=== PATIENT | female | born 1990 | race Caucasian/White ===

== ENCOUNTER 2016-05-16 23:41 | Emergency (ER) | payer OTHER ==
[2016-05-17] MEDS ORDERED: KETOROLAC 30 MG/ML 1 ML VIAL IVP STA (00:20)
[2016-05-17] MEDS ORDERED: SODIUM CHLORIDE 0.9% 1,000 ML IV STA (00:20)
[2016-05-17] MEDS ORDERED: ONDANSETRON 4 MG/2 ML VIAL IVP STA (00:20)
[2016-05-17 00:58] LABS: Basophils # (A) 0.1 k/uL (0-0.2); Basophils % (A) 1 %; CH 32.2; CHCM 34.8; Eosinophils # (A) 0.7 k/uL (0-0.7); Eosinophils % (A) 8 %; HCT 41.8 % (34.0-46.0); HDW 2.57; HGB 14.2 gm/dL (11.4-16.0); Luc # (Auto) 0.35; Luc % (Auto) 4; Lymphocytes # (A) 1.4 k/uL (1.0-4.8); Lymphocytes % (A) 17 %; MCH 31.5 pg (25.0-35.0); MCHC 33.9 g/dL (31.0-37.0); Mean Platelet Volume 7.9; Monocytes # (A) 0.4 k/uL (0-1.0); Monocytes % (A) 5 %; Neutrophils # (A) 5.3 k/uL (1.3-7.7); Neutrophils % (A) 65 %; RDW 12.9 % (11.5-15.5); WBC 8.2 k/uL (3.8-10.6); WBC (Perox) 8.55
[2016-05-17 01:06] LABS: Appearance,Urine Clear (Clear); Bilirubin,Urine Negative (Negative); Glucose,Urine (UA) 4+ (Negative); Ketones,Urine Negative (Negative); Leukocyte Esterase,Urine Negative (Negative); Nitrite,Urine Negative (Negative); PH, Urine 5.5 (5.0-8.0); Protein,Urine Negative (Negative); Specific Gravity,Urine 1.022 (1.001-1.035); UA Billing (MACRO vs. MICRO) CHEM; Urobilinogen,Urine <2.0 mg/dL (<2.0)
--- NOTE | 2016-05-17 01:07 | ED ---
Abdominal Pain HPI - General Chief Complaint: Abdominal Pain Stated Complaint: side pain Time Seen by Provider: 05/17/16 00:20 Source: patient, RN notes reviewed Mode of arrival: ambulatory Limitations: no limitations - History of Present Illness Initial Comments: Patient is a 18-year-old female with chief complaint of right upper quadrant abdominal pain for the past 4 days. Patient reports that she was seen at [facility] on and was given lab work and an x-ray and was told to go home as it was likely constipation. Patient reports that she's had normal bowel movement since then has not relieved her pain is related to constipation. She states is mainly in the right upper quadrant. She states that it has been constant but does state that it started after she ate breakfast and continues to persist after that. She states that she's had no fever or chills. She denies any dysuria or hematuria. She says she is slightly nauseated but denies any vomiting or diarrhea. Patient denies any significant past medical history. - Related Data Home Medications Medication Instructions Recorded Confirmed Gabapentin [Neurontin] 1 tab PO DAILY 05/16/16 05/16/16 Losartan [Cozaar] 1 tab PO DAILY 05/16/16 05/16/16 Sertraline [Zoloft] 1 tab PO DAILY 05/16/16 05/16/16 metFORMIN HCL 1 tab PO DAILY 05/16/16 05/16/16 Previous Rx's Medication Instructions Recorded Ondansetron Odt [Zofran Odt] 4 mg PO Q8HR PRN #12 tab 05/17/16 Allergies Allergy/AdvReac Type Severity Reaction Status Date / Time No Known Allergies Allergy Verified 05/16/16 23:48 Review of Systems ROS Statement: Those systems with pertinent positive or pertinent negative responses have been documented in the HPI. ROS Other: All systems not noted in ROS Statement are negative. Past Medical History Past Medical History: Diabetes Mellitus, Hyperlipidemia, Hypertension Additional Past Medical History / Comment(s): recovering addict and alcoholic History of Any Multi-Drug Resistant Organisms: None Reported Past Surgical History: No Surgical Hx Reported Past Psychological History: Bipolar Smoking Status: Current every day smoker Past Alcohol Use History: Occasional Past Drug Use History: None Reported General Exam - General Exam Comments Initial Comments: Well-appearing 18-year-old female. She doesn't appear to be in any acute distress. Limitations: no limitations General appearance: alert, in no apparent distress Head exam: Present: atraumatic, normocephalic, normal inspection Eye exam: Present: normal appearance, PERRL, EOMI. Absent: scleral icterus, conjunctival injection, periorbital swelling ENT exam: Present: normal exam, mucous membranes moist Neck exam: Present: normal inspection. Absent: tenderness, meningismus, lymphadenopathy Respiratory exam: Present: normal lung sounds bilaterally. Absent: respiratory distress, wheezes, rales, rhonchi, stridor Cardiovascular Exam: Present: regular rate, normal rhythm, normal heart sounds. Absent: systolic murmur, diastolic murmur, rubs, gallop, clicks GI/Abdominal exam: Present: soft, tenderness (Significant right upper quadrant tenderness.), normal bowel sounds. Absent: distended, guarding, rebound, rigid Extremities exam: Present: normal inspection, full ROM, normal capillary refill. Absent: tenderness, pedal edema, joint swelling, calf tenderness Back exam: Present: normal inspection Neurological exam: Present: alert, oriented X3, CN II-XII intact Psychiatric exam: Present: normal affect, normal mood Skin exam: Present: warm, dry, intact, normal color. Absent: rash Course Vital Signs 05/16/16 05/17/16 23:49 04:13 Temperature 98.6 F 98.1 F Pulse Rate 105 H 14 L Respiratory 20 78 H Rate Blood Pressure 143/87 129/74 O2 Sat by Pulse 97 97 Oximetry Medical Decision Making - Medical Decision Making Patient is a 26 year old diabetic female with one week of right upper qudrant pain. She went to [facility] on and lab work was obtained. She relates that the pain is worse after eating. She states that she has had no fever or chills. Patient labowrk was reviewed and compared to earlier in the week, she does have mildly elevated liver enzymes. RUQ us shows no gallstones, evidence of a fatty liver. Patient informed of results and advised to follow up with GI specialist and given Rx for zofran for nausea. Discussed possible hida scan. Patient understands thre needs to follow up with PCP and return paramteres discussed. - Lab Data Result diagrams: 05/17/16 00:35 05/17/16 00:35 Lab Results 05/17/16 05/17/16 05/17/16 Range/Units 00:35 00:35 00:35 WBC 8.2 (3.8-10.6) k/uL RBC 4.50 (3.80-5.40) m/uL Hgb 14.2 (11.4-16.0) gm/dL Hct 41.8 (34.0-46.0) % MCV 93.0 (80.0-100.0) fL MCH 31.5 (25.0-35.0) pg MCHC 33.9 (31.0-37.0) g/dL RDW 12.9 (11.5-15.5) % Plt Count 220 (150-450) k/uL Neutrophils % 65 % Lymphocytes % 17 % Monocytes % 5 % Eosinophils % 8 % Basophils % 1 % Neutrophils # 5.3 (1.3-7.7) k/uL Lymphocytes # 1.4 (1.0-4.8) k/uL Monocytes # 0.4 (0-1.0) k/uL Eosinophils # 0.7 (0-0.7) k/uL Basophils # 0.1 (0-0.2) k/uL Sodium 141 (137-145) mmol/L Potassium 4.0 (3.5-5.1) mmol/L Chloride 104 (98-107) mmol/L Carbon Dioxide 24 (22-30) mmol/L Anion Gap 13 mmol/L BUN 15 (7-17) mg/dL Creatinine 1.00 (0.52-1.04) mg/dL Est GFR (MDRD) Af Amer >60 (>60 ml/min/1.73 sqM) Est GFR (MDRD) Non-Af >60 (>60 ml/min/1.73 sqM) Glucose 241 H (74-99) mg/dL Calcium 10.0 (8.4-10.2) mg/dL Total Bilirubin 0.3 (0.2-1.3) mg/dL AST 46 H (14-36) U/L ALT 76 H (9-52) U/L Alkaline Phosphatase 54 (38-126) U/L Total Protein 7.8 (6.3-8.2) g/dL Albumin 4.7 (3.5-5.0) g/dL Amylase 60 (30-110) U/L Lipase 171 (23-300) U/L Urine Color Urine Appearance (Clear) Urine pH (5.0-8.0) Ur Specific Erick (1.001-1.035) Urine Protein (Negative) Urine Glucose (UA) (Negative) Urine Ketones (Negative) Urine Blood (Negative) Urine Nitrate (Negative) Urine Bilirubin (Negative) Urine Urobilinogen (<2.0) mg/dL Ur Leukocyte Esterase (Negative) Urine HCG, Qual Not Detected (Not Detectd) 05/17/16 Range/Units 00:35 WBC (3.8-10.6) k/uL RBC (3.80-5.40) m/uL Hgb (11.4-16.0) gm/dL Hct (34.0-46.0) % MCV (80.0-100.0) fL MCH (25.0-35.0) pg MCHC (31.0-37.0) g/dL RDW (11.5-15.5) % Plt Count (150-450) k/uL Neutrophils % % Lymphocytes % % Monocytes % % Eosinophils % % Basophils % % Neutrophils # (1.3-7.7) k/uL Lymphocytes # (1.0-4.8) k/uL Monocytes # (0-1.0) k/uL Eosinophils # (0-0.7) k/uL Basophils # (0-0.2) k/uL Sodium (137-145) mmol/L Potassium (3.5-5.1) mmol/L Chloride (98-107) mmol/L Carbon Dioxide (22-30) mmol/L Anion Gap mmol/L BUN (7-17) mg/dL Creatinine (0.52-1.04) mg/dL Est GFR (MDRD) Af Amer (>60 ml/min/1.73 sqM) Est GFR (MDRD) Non-Af (>60 ml/min/1.73 sqM) Glucose (74-99) mg/dL Calcium (8.4-10.2) mg/dL Total Bilirubin (0.2-1.3) mg/dL AST (14-36) U/L ALT (9-52) U/L Alkaline Phosphatase (38-126) U/L Total Protein (6.3-8.2) g/dL Albumin (3.5-5.0) g/dL Amylase (30-110) U/L Lipase (23-300) U/L Urine Color Yellow Urine Appearance Clear (Clear) Urine pH 5.5 (5.0-8.0) Ur Specific Erick 1.022 (1.001-1.035) Urine Protein Negative (Negative) Urine Glucose (UA) 4+ H (Negative) Urine Ketones Negative (Negative) Urine Blood Negative (Negative) Urine Nitrate Negative (Negative) Urine Bilirubin Negative (Negative) Urine Urobilinogen <2.0 (<2.0) mg/dL Ur Leukocyte Esterase Negative (Negative) Urine HCG, Qual (Not Detectd) - Radiology Data Radiology results: report reviewed KUB shows no evidence of free air. Increased fecal Abena. No x-ray evidence of bowel obstruction. Ultrasound that shows impression of fatty liver. No evidence of gallstones. Disposition Clinical Impression: RUQ pain, Fatty liver Disposition: HOME SELF-CARE Condition: Good Instructions: Abdominal Pain (ED) Additional Instructions: Patient advised to follow up with primary care provider. Is to follow-up with GI specialist. Return the emergency Department if any alarming signs or symptoms occur. Prescriptions: Ondansetron Odt [Zofran Odt] 4 mg PO Q8HR PRN #12 tab PRN Reason: Nausea Referrals: Albert Llanos MD [Primary Care Provider] - 1-2 days Time of Disposition: 03:29
[2016-05-17 01:08] LABS: ALT 76 U/L (9-52); AST 46 U/L (14-36); Alkaline Phosphatase 54 U/L (38-126); Amylase 60 U/L (30-110); Anion Gap 13 mmol/L; Blood Urea Nitrogen 15 mg/dL (7-17); Carbon Dioxide 24 mmol/L (22-30); Chloride 104 mmol/L (98-107); Glucose 241 mg/dL (74-99); Non-African American GFR(MDRD) >60 (>60 ml/min/1.73 sqM); Sodium 141 mmol/L (137-145); Total Bilirubin 0.3 mg/dL (0.2-1.3); Total Protein 7.8 g/dL (6.3-8.2)
--- NOTE | 2016-05-17 01:59 | US ---
EXAM: US Abdomen Limited, Right Upper Quadrant. CLINICAL HISTORY: Pain TECHNIQUE: Real-time ultrasound of the right upper quadrant with image documentation. COMPARISON: No relevant prior studies available. FINDINGS: Liver: 14.3 cm. Fatty infiltration. No mass. No intrahepatic bile duct dilation. Gallbladder: Unremarkable. No gallstones. Common bile duct: 0.3 cm. No stones. No dilation. Pancreas: Not well visualized. Right kidney: Unremarkable. No stones. No solid mass. No hydronephrosis. IMPRESSION: Fatty liver. No gallstones.
--- NOTE | 2016-05-17 03:10 | XR ---
EXAM: XR Abdomen, 1 View. CLINICAL HISTORY: abdominal pain TECHNIQUE: Frontal supine view of the abdomen/pelvis. COMPARISON: No relevant prior studies available. FINDINGS/IMPRESSION: No free air. Increased fecal burden, correlate with history of constipation. No radiographic evidence for small bowel obstruction.
[2016-05-17 04:14] VITALS: BP 129/74; PULSE 14; RESP 78; TEMP 98.1
== END 2016-05-17 04:13 | disposition home or self-care (01) ==
LOC: EC 23:41
DX: K76.0 Fatty (change of) liver, not elsewhere classified (principal); R10.11 Right upper quadrant pain; R11.0 Nausea; R74.8 Abnormal levels of other serum enzymes; E11.9 Type 2 diabetes mellitus without complications; E78.5 Hyperlipidemia, unspecified; I10 Essential (primary) hypertension; F31.9 Bipolar disorder, unspecified; F17.200 Nicotine dependence, unspecified, uncomplicated; Z79.899 Other long term (current) drug therapy; Z79.84 Long term (current) use of oral hypoglycemic drugs
CPT/HCPCS: 36415; 80053; 82150; 83690; 85025; 81003; 81025; 87086; 74000; 76705; 99284; 96374; 96375; 96361; J2405; J1885

== ENCOUNTER → 2016-05-20 | Outpatient (CLI) | payer OTHER ==
--- NOTE | 2016-05-21 05:59 | NM ---
EXAMINATION TYPE: NM hepatobiliary w EF DATE OF EXAM: 05/20/2016 5:27 PM COMPARISON: Gallbladder ultrasound from 3 days ago. HISTORY: Right upper quadrant pain per order. Additional symptoms of diminished appetite for 1 month. TECHNIQUE: After the intravenous administration of 5.45 mCi Tc 99m Mebrofenin hepatobiliary scintigra phy is performed. Immediate images post injection. FINDINGS: There is satisfactory initial accumulation of tracer by the liver. The gallbladder is visualized wit hin 25 minutes. The small bowel activity is noted within 20 minutes. At one hour 8 ounces of oral e nsure plus is given to mimic CCK and gallbladder ejection fraction is calculated at 55 %, in the norm al range. Therefore there is no scintigraphic evidence of cystic or common bile duct obstruction to suggest acute cholecystitis or gallbladder dyskinesia. IMPRESSION: Exam is within normal limits.
== END | disposition home or self-care (01) ==
LOC: RADNMMAIN 14:40
PROVIDERS: ATTEND Family Medicine
DX: R10.11 Right upper quadrant pain (principal)
CPT/HCPCS: 78226; A9537

== ENCOUNTER 2017-12-03 14:47 | Emergency (ER) | payer OTHER ==
[2017-12-03 14:55] VITALS: BP 135/76; PULSE 108; RESP 18; TEMP 99.5
[2017-12-03] MEDS ORDERED: LIDOCAINE 1% INJ 10MG/ML (20 ML MDV) SQ ONE (15:25)
--- NOTE | 2017-12-03 15:30 | ED ---
General Adult HPI - General Chief complaint: Skin/Abscess/Foreign Body Stated complaint: fever & Female Time Seen by Provider: 12/03/17 15:15 Source: patient, RN notes reviewed Mode of arrival: ambulatory Limitations: no limitations - History of Present Illness Initial comments: Patient is a pleasant 27-year-old female presenting to the emergency Department with concern for labial boil. Onset of symptoms was a few days ago. Symptoms worsened today and is becoming larger and more uncomfortable. Patient did have 101 temperature earlier today. Patient did recently see her doctor and diagnosed with bronchitis. Patient only has a mild cough. No dyspnea. Discomfort does increase with touch and movement. No history of similar symptoms previously. - Related Data Home Medications Medication Instructions Recorded Confirmed metFORMIN HCL 1 tab PO DAILY 05/16/16 05/16/16 Loratadine [Claritin] 10 mg PO DAILY 12/03/17 12/03/17 Previous Rx's Medication Instructions Recorded Cefixime [Suprax] 400 mg PO DAILY #7 cap 12/03/17 Clindamycin [Cleocin] 2 tab PO Q6H #56 capsule 12/03/17 Allergies Allergy/AdvReac Type Severity Reaction Status Date / Time No Known Allergies Allergy Verified 12/03/17 15:51 Review of Systems ROS Statement: Those systems with pertinent positive or pertinent negative responses have been documented in the HPI. ROS Other: All systems not noted in ROS Statement are negative. Constitutional: Reports: fever Eyes: Denies: eye pain ENT: Denies: ear pain Respiratory: Reports: cough. Denies: dyspnea Cardiovascular: Denies: chest pain Endocrine: Denies: fatigue Gastrointestinal: Denies: abdominal pain Genitourinary: Denies: dysuria Musculoskeletal: Denies: back pain Skin: Reports: lesions Neurological: Denies: headache Past Medical History Past Medical History: Diabetes Mellitus, Hyperlipidemia, Hypertension Additional Past Medical History / Comment(s): recovering addict and alcoholic History of Any Multi-Drug Resistant Organisms: None Reported Past Surgical History: No Surgical Hx Reported Past Psychological History: Bipolar Smoking Status: Current every day smoker Past Alcohol Use History: Occasional Past Drug Use History: None Reported General Exam Limitations: no limitations General appearance: alert, in no apparent distress Head exam: Present: atraumatic Eye exam: Present: normal appearance Neck exam: Present: normal inspection Respiratory exam: Present: normal lung sounds bilaterally Cardiovascular Exam: Present: regular rate, normal rhythm GI/Abdominal exam: Present: soft. Absent: tenderness External exam: Present: other (Left lower lateral labial swelling and tenderness and mild erythema.) Neurological exam: Present: alert Psychiatric exam: Present: normal affect, normal mood Skin exam: Present: normal color Course Vital Signs 12/03/17 14:51 Temperature 99.5 F Pulse Rate 108 H Respiratory 18 Rate Blood Pressure 135/76 O2 Sat by Pulse 99 Oximetry Procedures - Incision & Drainage Consent Obtained: verbal consent Time Out Performed?: Yes Site: vulva/vagina (") Anesthetic Used: lidocaine 1% I&D Cleaning Method: Betadine Scalpel Used: #11 I&D Drainage Obtained: Pus Packing: Other (Villafana catheter) Culture Obtained?: Yes Disposition Clinical Impression: Bartholin's gland abscess Disposition: HOME SELF-CARE Condition: Stable Instructions: Abscess (ED), Bartholin Cyst (ED) Additional Instructions: Please follow-up with primary care physician or HEALTH TECHNICIAN in the next day or 2 for recheck. You will need to have catheter removed within the next few days up to a couple of weeks. Return for pain, swelling, increased redness, fevers, worsening symptoms or other concerns. Daily sitz baths Prescriptions: Cefixime [Suprax] 400 mg PO DAILY #7 cap Clindamycin [Cleocin] 2 tab PO Q6H #56 capsule Is patient prescribed a controlled substance at d/c from ED?: No Referrals: Harriet Lemus MD [Primary Care Provider] - 1-2 days Rubi Lanier DO [Doctor of Osteopathic Medicine] - 1-2 days Time of Disposition: 15:55
[2017-12-03] MEDS ORDERED: ACETAMINOPHEN TAB 500 MG TAB PO STA (15:59)
== END 2017-12-03 16:10 | disposition home or self-care (01) ==
LOC: EC 14:47
DX: N75.1 Abscess of Bartholin's gland (principal); E11.9 Type 2 diabetes mellitus without complications; F17.200 Nicotine dependence, unspecified, uncomplicated; Z79.84 Long term (current) use of oral hypoglycemic drugs; Z79.899 Other long term (current) drug therapy
CPT/HCPCS: 56420; 87070; 87205; 99283

== ENCOUNTER 2017-12-04 18:13 | Inpatient (IN) | payer OTHER ==
[2017-12-04] MEDS ORDERED: VANCOMYCIN IV PER PHARMACY 1 EACH MISC MISCELLANE PRN (19:02)
[2017-12-04] MEDS ORDERED: VANCOMYCIN 1,500 MG in SODIUM CHLORIDE 0.9% 250 ML IVPB STA (19:10)
[2017-12-04 19:23] LABS: Basophils % (A) 0 %; Eosinophils # (A) 0.1 k/uL (0-0.7); Eosinophils % (A) 1 %; HCT 40.6 % (34.0-46.0); HGB 13.6 gm/dL (11.4-16.0); Lymphocytes # (A) 0.8 k/uL (1.0-4.8); Lymphocytes % (A) 6 %; MCH 31.6 pg (25.0-35.0); MCHC 33.6 g/dL (31.0-37.0); MCV 93.9 fL (80.0-100.0); Mean Platelet Volume 6.9; Monocytes # (A) 0.3 k/uL (0-1.0); Monocytes % (A) 2 %; Neutrophils # (A) 12.9 k/uL (1.3-7.7); Neutrophils % (A) 91 %; Platelet Count 207 k/uL (150-450); RBC 4.32 m/uL (3.80-5.40); RDW 11.7 % (11.5-15.5); WBC 14.3 k/uL (3.8-10.6)
[2017-12-04 19:34] LABS: ALT 31 U/L (9-52); AST 19 U/L (14-36); Albumin 3.8 g/dL (3.5-5.0); Alkaline Phosphatase 69 U/L (38-126); Anion Gap 11 mmol/L; Blood Urea Nitrogen 18 mg/dL (7-17); Calcium 9.2 mg/dL (8.4-10.2); Carbon Dioxide 22 mmol/L (22-30); Chloride 104 mmol/L (98-107); Glucose 300 mg/dL (74-99); Potassium 3.8 mmol/L (3.5-5.1); Sodium 137 mmol/L (137-145); Total Bilirubin 0.8 mg/dL (0.2-1.3); Total Protein 6.9 g/dL (6.3-8.2)
--- NOTE | 2017-12-04 19:39 | ED ---
Skin/Abscess/FB HPI - General Chief complaint: Skin/Abscess/Foreign Body Stated complaint: CYST Time Seen by Provider: 12/04/17 18:33 Source: patient, RN notes reviewed Mode of arrival: ambulatory Limitations: no limitations - History of Present Illness Initial comments: This is a 27-year-old female who presents to the emergency department for recheck of a Bartholin's gland abscess. Patient was seen here in the emergency department yesterday and had a Bartholin's gland abscess drained and a catheter placed. Patient states that prior to presentation to the emergency department yesterday, she did have a fever of 101.4. She states she has not had fevers since that time but has been taking Tylenol routinely. Patient states that she returned to the emergency department today because the pain and redness has spread up to her pubic region. She states that her left labia has become more swollen and the catheter has not been draining a lot. She was prescribed Suprax and clindamycin. Patient states that she has not filled the Suprax because it was too expensive. She has taken one dose of clindamycin so far. Patient denies chest pain or shortness of breath, abdominal pain, nausea or vomiting. - Related Data Home Medications Medication Instructions Recorded Confirmed metFORMIN HCL 1,000 mg PO BID 05/16/16 12/03/17 Loratadine [Claritin] 10 mg PO DAILY 12/03/17 12/03/17 Previous Rx's Medication Instructions Recorded Cefixime [Suprax] 400 mg PO DAILY #7 cap 12/03/17 Clindamycin [Cleocin] 2 tab PO Q6H #56 capsule 12/03/17 Allergies Allergy/AdvReac Type Severity Reaction Status Date / Time No Known Allergies Allergy Verified 12/04/17 18:18 Review of Systems ROS Statement: Those systems with pertinent positive or pertinent negative responses have been documented in the HPI. ROS Other: All systems not noted in ROS Statement are negative. Past Medical History Past Medical History: Diabetes Mellitus, Hyperlipidemia, Hypertension Additional Past Medical History / Comment(s): recovering addict and alcoholic History of Any Multi-Drug Resistant Organisms: None Reported Past Surgical History: No Surgical Hx Reported Past Psychological History: Bipolar Smoking Status: Current every day smoker Past Alcohol Use History: Occasional Past Drug Use History: None Reported General Exam - General Exam Comments Initial Comments: General: Awake and alert, well-developed; in no apparent distress. HEENT: Head atraumatic, normocephalic. Pupils are equal, round and reactive to light. Extraocular movements intact. Oropharynx moist without erythema or exudate. Neck: Supple. Normal ROM. Cardiovascular: Regular rhythm. Tachycardia. No murmurs, rubs or gallops. Chest symmetrical. Respiratory: Lungs clear to auscultation bilaterally. No wheezes, rales or rhonchi. Normal respiratory effort with no use of accessory muscles. Abdomen: Soft, non-distended. Tenderness on palpation of suprapubic region. No rigidity, rebound or guarding. Normal bowel sounds in all 4 quadrants. Musculoskeletal: Normal ROM, no tenderness bilateral upper and lower extremities. Ambulating normally. Skin: [place], warm and dry. Neurological: Alert and oriented x3. CN II-XII grossly intact. Speech is fluent and answers are appropriate. No focal neuro deficits. Psychiatric: Normal mood and affect. No overt signs of depression or anxiety noted. Limitations: no limitations External exam: Present: other (diffuse erythema, swelling and tenderness of entire left labia. bartholin gland catheter is in place. no active drainage noted. erythema spreading to pubis with tenderness on palpation.) Course Vital Signs 12/04/17 12/04/17 18:16 19:43 Temperature 98.8 F 98.4 F Pulse Rate 111 H 99 Respiratory 18 16 Rate Blood Pressure 130/80 132/62 O2 Sat by Pulse 98 94 L Oximetry - Reevaluation(s) Reevaluation #1: At this time, patient does meet criteria for sepsis with tachycardia and a white count of 14.3. Patient has been started on vancomycin and Zosyn. Blood cultures pending. 12/04/17 19:57 Medical Decision Making - Medical Decision Making This is a 27-year-old female who presents to the emergency department for recheck of Bartholin's gland abscess. Patient had a Bartholin abscess drained yesterday here in the emergency department. She states that the redness and pain has spread upward and her labia has become more swollen. On physical examination, there is extensive swelling, erythema and tenderness to the entire left labia with spreading redness up to the pubic area. Patient does report fevers at home but states that she has been taking Tylenol consistently. CBC reveals a white count of 14.3 with a left shift of 12.9. Lactic acid is 2.0. CMP reveals a glucose of 300. Patient states that she does have type 2 diabetes and takes 1000 mg of metformin in the morning and in the evening. She states that she did not take her morning dose. Patient has her medications with her and took her nighttime dose while here in the emergency department. Patient does meet sepsis criteria and started on vancomycin and Zosyn. She will be admitted to Dr. Zheng for IV antibiotics. Case discussed in detail with attending physician, Dr. Fritz. Patient is in agreement for admission. She is in no acute distress. - Lab Data Result diagrams: 12/04/17 19:04 12/04/17 19:04 Lab Results 12/04/17 12/04/17 12/04/17 Range/Units 19:04 19:04 19:04 WBC 14.3 H (3.8-10.6) k/uL RBC 4.32 (3.80-5.40) m/uL Hgb 13.6 (11.4-16.0) gm/dL Hct 40.6 (34.0-46.0) % MCV 93.9 (80.0-100.0) fL MCH 31.6 (25.0-35.0) pg MCHC 33.6 (31.0-37.0) g/dL RDW 11.7 (11.5-15.5) % Plt Count 207 (150-450) k/uL Neutrophils % 91 % Lymphocytes % 6 % Monocytes % 2 % Eosinophils % 1 % Basophils % 0 % Neutrophils # 12.9 H (1.3-7.7) k/uL Lymphocytes # 0.8 L (1.0-4.8) k/uL Monocytes # 0.3 (0-1.0) k/uL Eosinophils # 0.1 (0-0.7) k/uL Basophils # 0.0 (0-0.2) k/uL Sodium 137 (137-145) mmol/L Potassium 3.8 (3.5-5.1) mmol/L Chloride 104 (98-107) mmol/L Carbon Dioxide 22 (22-30) mmol/L Anion Gap 11 mmol/L BUN 18 H (7-17) mg/dL Creatinine 0.88 (0.52-1.04) mg/dL Est GFR (CKD-EPI)AfAm >90 (>60 ml/min/1.73 sqM) Est GFR (CKD-EPI)NonAf 90 (>60 ml/min/1.73 sqM) Glucose 300 H (74-99) mg/dL Plasma Lactic Acid Nikunj 2.0 (0.7-2.0) mmol/L Calcium 9.2 (8.4-10.2) mg/dL Total Bilirubin 0.8 (0.2-1.3) mg/dL AST 19 (14-36) U/L ALT 31 (9-52) U/L Alkaline Phosphatase 69 (38-126) U/L Total Protein 6.9 (6.3-8.2) g/dL Albumin 3.8 (3.5-5.0) g/dL Disposition Clinical Impression: Bartholin's gland abscess, Cellulitis, Sepsis Disposition: ADMITTED IP TO THIS HOSP Condition: Good Is patient prescribed a controlled substance at d/c from ED?: No Referrals: Harriet Lemus MD [Primary Care Provider] - 1-2 days Time of Disposition: 20:15
[2017-12-04] MEDS ORDERED: SODIUM CHLORIDE 0.9% 1,000 ML IV STA (19:58)
[2017-12-04] MEDS ORDERED: NALOXONE 0.4 MG/ML 1 ML VIAL IV PRN (20:16)
[2017-12-04 21:55] VITALS: BMI 27.5
[2017-12-04 22:09] LABS: Glucose,Whole Blood 191 mg/dL (75-99)
[2017-12-04] MEDS: ACETAMINOPHEN TAB 325 MG TAB PO PRN (22:09)
[2017-12-04] MEDS: KETOROLAC 30 MG/ML 1 ML VIAL IVP PRN (22:09)
[2017-12-04] MEDS: ONDANSETRON 4 MG/2 ML VIAL IVP PRN (22:11)
[2017-12-04] MEDS: PIPERACILLIN-TAZOBACTAM 3.375 GM in DEXTROSE/WATER 1 50ML.BAG IVPB SCH (22:53)
[2017-12-04] MEDS: SODIUM CHLORIDE 0.9% 1,000 ML IV SCH (23:48)
[2017-12-05] MEDS: VANCOMYCIN 1,500 MG in SODIUM CHLORIDE 0.9% 250 ML IVPB SCH ×3 (04:29→20:03)
[2017-12-05] MEDS: PIPERACILLIN-TAZOBACTAM 3.375 GM in DEXTROSE/WATER 1 50ML.BAG IVPB SCH ×3 (04:31→20:03)
[2017-12-05] MEDS: ONDANSETRON 4 MG/2 ML VIAL IVP PRN ×3 (05:01→20:02)
[2017-12-05] MEDS: KETOROLAC 30 MG/ML 1 ML VIAL IVP PRN ×3 (05:02→22:07)
[2017-12-05] MEDS: SODIUM CHLORIDE 0.9% 1,000 ML IV SCH ×2 (05:55→17:23)
[2017-12-05 07:29] LABS: Glucose,Whole Blood 255 mg/dL (75-99)
[2017-12-05] MEDS: ACETAMINOPHEN TAB 325 MG TAB PO PRN ×2 (08:08→14:33)
[2017-12-05 08:22] LABS: ALT 45 U/L (9-52); AST 28 U/L (14-36); Albumin 3.2 g/dL (3.5-5.0); Alkaline Phosphatase 89 U/L (38-126); Anion Gap 9 mmol/L; Blood Urea Nitrogen 16 mg/dL (7-17); Calcium 8.5 mg/dL (8.4-10.2); Carbon Dioxide 26 mmol/L (22-30); Chloride 102 mmol/L (98-107); Glucose 226 mg/dL (74-99); Sodium 137 mmol/L (137-145); Total Bilirubin 0.7 mg/dL (0.2-1.3); Total Protein 5.9 g/dL (6.3-8.2)
[2017-12-05 09:18] LABS: Basophils % (A) 0 %; Eosinophils % (A) 0 %; HCT 36.7 % (34.0-46.0); HGB 11.9 gm/dL (11.4-16.0); Lymphocytes # (A) 0.7 k/uL (1.0-4.8); Lymphocytes % (A) 5 %; MCH 30.7 pg (25.0-35.0); MCHC 32.4 g/dL (31.0-37.0); MCV 94.7 fL (80.0-100.0); Mean Platelet Volume 7.5; Monocytes # (A) 0.7 k/uL (0-1.0); Monocytes % (A) 5 %; Neutrophils # (A) 12.9 k/uL (1.3-7.7); Neutrophils % (A) 89 %; Platelet Count 167 k/uL (150-450); RBC 3.88 m/uL (3.80-5.40); RDW 11.7 % (11.5-15.5); WBC 14.5 k/uL (3.8-10.6)
[2017-12-05 11:27] LABS: Glucose,Whole Blood 207 mg/dL (75-99)
[2017-12-05 15:47] LABS: Appearance,Urine Cloudy (Clear); Bilirubin,Urine Negative (Negative); Blood,Urine Negative (Negative); Color,Urine Yellow; Glucose,Urine (UA) 2+ (Negative); Ketones,Urine 1+ (Negative); Leukocyte Esterase,Urine Moderate (Negative); Mucus,Urine Rare /hpf; Nitrite,Urine Negative (Negative); Protein,Urine 1+ (Negative); RBC,Urine 1 /hpf (0-5); Specific Gravity,Urine 1.029 (1.001-1.035); Squamous Epithelial Cell,Urine 4 /hpf (0-4); WBC,Urine 11 /hpf (0-5)
[2017-12-05] MEDS: IBUPROFEN 400 MG TAB PO PRN (16:07)
[2017-12-05 16:59] LABS: Glucose,Whole Blood 203 mg/dL (75-99)
[2017-12-05] MEDS: INSULIN ASPART 100 UNIT/ML 1 ML 10 ML VIAL SQ SCH ×2 (17:24→21:20)
--- NOTE | 2017-12-05 18:23 | P.HPIM ---
History of Present Illness H&P Date: 12/05/17 Chief Complaint: Swelling of the right labia Ms. Thao is a 27-year-old female with a past medical history of PCO S coming in with the chief complaint of swelling of the right labia for the past 2-3 days. Patient was in the ER yesterday and had the Bartholin's gland abscess drained and a catheter was placed and discharged home on clindamycin. Patient states that she took the clindamycin but still continued to have increased pain and more swelling of her right labia along with fever so which brought her to the emergency department again today. She states that the pain has increased and the redness has been spreading up to the pubic region. Patient also complains of subjective fevers. So patient has been admitted for IV antibiotics. Patient states that she is sexually active. Denies having any vaginal discharge. No previous histories of STDs. Patient's only past medical history is PCO S for which she takes metformin on and off. She is an every day smoker. Denies alcohol abuse or illicit drug abuse. Review of Systems REVIEW OF SYSTEMS: PSYCH: Normal psychiatric exam NEURO: No facial droop, No speech abnormalities. VASCULAR: no edema HEMATOLOGIC: No history of easy bleeding and bruising . No recent infections . RESPIRATORY: No cough, No SOB, No chest discomfort. 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 GI: No abdominal pain, Nausea or vomiting. No constipation or diarrhea. Past Medical History Past Medical History: Diabetes Mellitus, Hyperlipidemia, Hypertension Additional Past Medical History / Comment(s): recovering addict and alcoholic, polycystic ovarian syndrome History of Any Multi-Drug Resistant Organisms: None Reported Past Surgical History: No Surgical Hx Reported Past Psychological History: Bipolar Smoking Status: Current every day smoker Past Alcohol Use History: Occasional Past Drug Use History: None Reported Medications and Allergies Home Medications Medication Instructions Recorded Confirmed Type metFORMIN HCL 1,000 mg PO BID 05/16/16 12/05/17 History Loratadine [Claritin] 10 mg PO DAILY 12/03/17 12/05/17 History Clindamycin [Cleocin] 300 mg PO Q6H 12/05/17 12/05/17 History predniSONE 40 mg PO DAILY 12/05/17 12/05/17 History Allergies Allergy/AdvReac Type Severity Reaction Status Date / Time No Known Allergies Allergy Verified 12/05/17 12:08 Physical Exam Vitals: Vital Signs Temp Pulse Pulse Resp BP BP Pulse Ox 12/05/17 17:33 98.7 F 12/05/17 16:05 100.3 F H 12/05/17 15:21 100.3 F H 12/05/17 14:00 101.4 F H 105 H 20 112/64 98 12/05/17 12:46 97.2 F L 12/05/17 05:43 99.4 F 102 H 16 106/59 96 12/04/17 22:00 100.0 F H 117 H 16 132/81 100 12/04/17 19:43 98.4 F 99 16 132/62 94 L 12/04/17 18:16 98.8 F 111 H 18 130/80 98 Intake and Output 12/05/17 12/05/17 12/05/17 06:59 14:59 22:59 Intake Total 1200 Balance 1200 Intake: Oral 1200 Other: Voiding Method Toilet Toilet Toilet Bedside Commode # Voids 1 Weight 92 kg 92 kg GENERAL EXAM GEN. APPEARANCE: alert, in no apparent distress HEAD EXAM: atraumatic, normocephalic, normal inspection EYE EXAM: normal appearance, PERRL, EOMI. Absent: scleral icterus, conjunctival injection, periorbital swelling ENT EXAM: normal exam, mucous membranes moist NECK EXAM: normal inspection. Absent: tenderness, meningismus, full ROM, lymphadenopathy RESPIRATORY EXAM: normal lung sounds bilaterally. Absent: respiratory distress , wheezes, rales, rhonchi, stridor CARDIOVASCULAR EXAM: regular rate, normal rhythm, normal heart sounds. Absent : systolic murmur, diastolic murmur, rubs, gallop, clicks GI/ABDOMINAL EXAM: soft, normal bowel sounds. Absent: distended, tenderness, guarding, rebound, rigid EXTREMITIES EXAM: normal inspection, full ROM, normal capillary refill. Absent : tenderness, pedal edema, joint swelling, calf tenderness Examination of genitalia- right labia majora swollen and edematous ' + tenderness. Redness that is spreading through to the right pelvic area. NEUROLOGICAL EXAM: alert, oriented X3, no focal deficits Results CBC & Chem 7: 12/05/17 07:25 12/05/17 07:25 Labs: Abnormal Lab Results - Last 24 Hours (Table) 12/04/17 12/04/17 12/04/17 Range/Units 19:04 19:04 22:08 WBC 14.3 H (3.8-10.6) k/uL Neutrophils # 12.9 H (1.3-7.7) k/uL Lymphocytes # 0.8 L (1.0-4.8) k/uL BUN 18 H (7-17) mg/dL Glucose 300 H (74-99) mg/dL POC Glucose (mg/dL) 191 H (75-99) mg/dL Total Protein (6.3-8.2) g/dL Albumin (3.5-5.0) g/dL Urine Appearance (Clear) Urine Protein (Negative) Urine Glucose (UA) (Negative) Urine Ketones (Negative) Ur Leukocyte Esterase (Negative) Urine WBC (0-5) /hpf Urine Mucus (None) /hpf 12/05/17 12/05/17 12/05/17 Range/Units 07:21 07:25 07:25 WBC 14.5 H (3.8-10.6) k/uL Neutrophils # 12.9 H (1.3-7.7) k/uL Lymphocytes # 0.7 L (1.0-4.8) k/uL BUN (7-17) mg/dL Glucose 226 H (74-99) mg/dL POC Glucose (mg/dL) 255 H (75-99) mg/dL Total Protein 5.9 L (6.3-8.2) g/dL Albumin 3.2 L (3.5-5.0) g/dL Urine Appearance (Clear) Urine Protein (Negative) Urine Glucose (UA) (Negative) Urine Ketones (Negative) Ur Leukocyte Esterase (Negative) Urine WBC (0-5) /hpf Urine Mucus (None) /hpf 12/05/17 12/05/17 12/05/17 Range/Units 11:24 14:45 16:49 WBC (3.8-10.6) k/uL Neutrophils # (1.3-7.7) k/uL Lymphocytes # (1.0-4.8) k/uL BUN (7-17) mg/dL Glucose (74-99) mg/dL POC Glucose (mg/dL) 207 H 203 H (75-99) mg/dL Total Protein (6.3-8.2) g/dL Albumin (3.5-5.0) g/dL Urine Appearance Cloudy H (Clear) Urine Protein 1+ H (Negative) Urine Glucose (UA) 2+ H (Negative) Urine Ketones 1+ H (Negative) Ur Leukocyte Esterase Moderate H (Negative) Urine WBC 11 H (0-5) /hpf Urine Mucus Rare H (None) /hpf Thrombosis Risk Factor Assmnt - Choose All That Apply Any of the Below Risk Factors Present?: Yes Assessment and Plan Assessment: ASSESSMENT Sepsis - secondary to Bartholin's gland abscess PCOD Plan -will jes the area of redness, to check for progression/ regression. Patient has been started on vancomycin and Zosyn which will be continued. ANIMAL CONTROL LICENSING WORKER consult for possible drainage of the abscess. Motrin and Tylenol for pain and fever. Blood cultures pending. We'll send urine for gonorrhea and chlamydia. Further recommendations to follow depending on the progress of the patient.
[2017-12-05 20:40] LABS: Glucose,Whole Blood 226 mg/dL (75-99)
--- NOTE | 2017-12-05 22:08 | CONS ---
CONSULTATION DATE OF SERVICE: 12/05/2017. REASON FOR CONSULTATION: Left labial abscess. HISTORY OF PRESENT ILLNESS: The patient is a 27 female with past medical history significant for polycystic ovarian syndrome in addition to the diabetes mellitus, started having a pain, swelling and a pimple to the left labial area. The patient said she tried to squeeze it with drainage of some purulent material. Over the next day, the area became more swollen and red and painful. Pain described as throbbing in nature, 6 to 7/10. The patient says she presented to the ER where the patient was evaluated by the ER physician and has been diagnosed with possible infected Bartholin cyst with drainage of this area by the ER physician and the patient discharged home on oral clindamycin. The patient says she took 2-3 doses of the clindamycin. However, the area is becoming worse with more swelling, more redness and more pain and started having a fever of 101- 102 Fahrenheit. With worsening symptoms, the patient did present back to the [facility] ER. The patient was evaluated by the ER physician. The patient was started on vancomycin, Zosyn and admitted hospital. Infectious Disease was consulted for further recommendation regarding antibiotic therapy. REVIEW OF SYSTEMS: CONSTITUTIONAL: Positive for weakness along with the fever. Eyes: No complaint. ENT no complaint. Respiratory no complaint. Cardiovascular no complaint. Genitourinary as per HPI. Gastrointestinal: No complaint. Musculoskeletal no complaint. Integumentary: No complaint. Psychological no complaint. Endocrine no complaint. Neurological no complaint. PAST MEDICAL HISTORY: Significant for type 2 diabetes mellitus, polycystic ovarian syndrome. PAST SURGICAL HISTORY: No major surgery. SOCIAL HISTORY: The patient is currently a smoker, smokes about a pack a day. Occasionally drinks. No drug use. FAMILY HISTORY: No pertinent findings noticed. ALLERGIES: No known drug allergies. MEDICATIONS: Currently the patient is on Tylenol, [place], Motrin, NovoLog, Toradol, vancomycin pharmacy to dose. She is on Zosyn. EXAMINATION: Blood pressure is 112/64 with a pulse of 105, temperature is 101.4. She is 98% on room air. General description is a middle aged female, lying in bed in no distress. HEENT: Shows no pallor or scleral icterus. Oral mucosa membranes are moist. No significant erythema or thrush. Neck trachea central. No thyromegaly. LUNGS: Unlabored breathing. Clear to auscultation anteriorly. No wheeze or crackles. Heart S1, S2. Regular rate and rhythm. ABDOMEN: Soft. Minimal tenderness left side. No guarding or rigidity. Examination of the pelvic area did show left labia significant swollen and tender to touch. No drainage. EXTREMITIES: No edema of the feet. Skin examination: No rash or mass palpable. Neurological: Patient is awake, alert, oriented x3. Mood and affect normal. LABS: Hemoglobin is 11.9, white count 14.5. BUN of 16, creatinine 0.92. Electrolytes have been normal. Urine has been mildly positive. Cultures obtained on December 03 showing gram-positive as well as gram-negative. DIAGNOSTIC IMPRESSION AND PLAN: Patient with left labial abscess and cellulitis with question of possible infected Bartholin cyst. In view of the persistent fever, the concern is for persistent abscess that may need to be drained and the likely organism to cover with the gram-negative as well as gram-positive skin jose did respond to outpatient clindamycin therapy. PLAN: 1. Recommend obtaining an STOVE CARRIAGE OPERATOR evaluation for possible surgical drainage and deep cultures. 2. We will treat the patient on vancomycin, pharmacy to dose target of 15 along with Zosyn while waiting for the culture to finalize. 3. We will follow up on clinical condition and culture to further adjust medication if needed. Thank you for this consultation. We will follow the patient along with you. MMODL / IJN: [id number] /
[2017-12-06] MEDS: SODIUM CHLORIDE 0.9% 1,000 ML IV SCH ×3 (02:13→23:14)
[2017-12-06] MEDS: ACETAMINOPHEN TAB 325 MG TAB PO PRN ×2 (02:30→14:47)
[2017-12-06] MEDS: PIPERACILLIN-TAZOBACTAM 3.375 GM in DEXTROSE/WATER 1 50ML.BAG IVPB SCH ×3 (04:52→23:12)
[2017-12-06] MEDS: KETOROLAC 30 MG/ML 1 ML VIAL IVP PRN ×3 (04:52→20:51)
[2017-12-06] MEDS: VANCOMYCIN 1,500 MG in SODIUM CHLORIDE 0.9% 250 ML IVPB SCH ×3 (04:52→20:44)
[2017-12-06] MEDS: ONDANSETRON 4 MG/2 ML VIAL IVP PRN ×2 (04:52→20:51)
[2017-12-06 07:32] LABS: Glucose,Whole Blood 232 mg/dL (75-99)
[2017-12-06] MEDS: INSULIN ASPART 100 UNIT/ML 1 ML 10 ML VIAL SQ SCH ×4 (08:05→21:01)
[2017-12-06 09:15] LABS: Hemoglobin A1C 7.7 % (4.0-6.0)
[2017-12-06 09:41] LABS: Anion Gap 7 mmol/L; Blood Urea Nitrogen 17 mg/dL (7-17); Calcium 8.7 mg/dL (8.4-10.2); Carbon Dioxide 26 mmol/L (22-30); Chloride 105 mmol/L (98-107); Glucose 253 mg/dL (74-99); Potassium 3.7 mmol/L (3.5-5.1); Sodium 138 mmol/L (137-145)
[2017-12-06 09:42] LABS: HCT 34.4 % (34.0-46.0); HGB 11.4 gm/dL (11.4-16.0); MCH 31.4 pg (25.0-35.0); MCV 95.2 fL (80.0-100.0); Mean Platelet Volume 7.1; Platelet Count 206 k/uL (150-450); RBC 3.62 m/uL (3.80-5.40); RDW 11.8 % (11.5-15.5); WBC 10.3 k/uL (3.8-10.6)
[2017-12-06] MEDS ORDERED: VANCOMYCIN TROUGH DUE 1 EACH MISC MISCELLANE ONE ×2 (11:00→19:30)
[2017-12-06] MEDS: IOPAMIDOL-300 CONTRAST 30 ML VIAL (ORAL USE) PO PRN ×2 (11:43→12:55)
[2017-12-06 11:50] LABS: Lymphocytes # (M) 1.55 k/uL (1.0-4.8); Nucleated Red Blood Cells 0 /100 WBC (0-0)
[2017-12-06 11:53] LABS: Band Neutrophils % 5 %; Eosinophils # (M) 0.31 k/uL (0-0.7); Monocytes # (M) 0.52 k/uL (0-1.0); Neutrophils % (M) 73 %; Total Cells Counted 200
[2017-12-06 12:00] LABS: Glucose,Whole Blood 228 mg/dL (75-99)
--- NOTE | 2017-12-06 12:55 | PN ---
PROGRESS NOTE DATE OF SERVICE: 12/06/2017 REASON FOR FOLLOWUP: Left labial abscess. INTERVAL HISTORY: The patient is currently afebrile. She has been complaining of pain into the left lower pelvic area: Overall redness has been decreased, continue today. Very minimal drainage from the lower end of the labial incision. Denies having any chest pain, shortness of breath or cough and no diarrhea. PHYSICAL EXAMINATION: Blood pressure is 98/55 with a pulse of 83, temperature 97.2. She is 96% on room air. General description is is a middle-aged female, lying in bed in no distress. RESPIRATORY SYSTEM: Unlabored breathing, clear to auscultation anteriorly. HEART: S1, S2. Regular rate and rhythm. ABDOMEN: Soft, no tenderness. Left labial area still has swelling and redness and induration with some tenderness left lower quadrant area. LABS: Hemoglobin 11.4, white count 10.3, BUN of 17, creatinine 0.90. DIAGNOSTIC IMPRESSION AND PLAN: Patient with left labial abscess with concern for possible extending infection to the left lower pelvic area in view of the tenderness. We will obtain a CT abdominal pelvic area to make sure there is no evidence of any extensive infection that may need to be drained further surgically. Waiting for the OB evaluation. Repeat culture has been obtained as initial cultures did not grow any pathogen. Will keep the patient on the vancomycin and Zosyn while waiting for the condition to stabilize and repeat cultures finalize. Overall prognosis remains extremely guarded. Continue supportive care. MMODL / IJN: [id number] /
--- NOTE | 2017-12-06 14:56 | CT ---
"EXAMINATION TYPE: CT abdomen pelvis w con DATE OF EXAM: 12/06/2017 COMPARISON: None HISTORY: Left lower quadrant pain, left labial abscess. CT DLP: 1118.4 mGycm Automated exposure control for dose reduction was used. TECHNIQUE: Helical acquisition of images from the lung bases through the pelvis have been completed. CONTRAST: Performed with Oral Contrast and with IV Contrast, patient injected with 100 mL of Isovue M300. FINDINGS: LUNG BASES: Some minimal dependent atelectatic changes are suspected. AORTA: No significant abnormality is appreciated. LIVER/GB: Suspect there may be some pericholecystic fluid present, correlate for possible cholecystit is. Liver shows low attenuation possibly due to hepatic steatosis. The liver is enlarged.. PANCREAS: No significant abnormality is seen. SPLEEN: No significant abnormality is seen. ADRENALS: No significant abnormality is seen. KIDNEYS: No significant abnormality is seen. REPRODUCTIVE ORGANS: There is air density present within the labia on the left with associated soft t issue stranding. No appreciable fluid, gas density extends towards the inguinal ring level on the lef t at the level of the pubic symphysis BOWEL: No significant abnormality is seen. FREE AIR: No Free Air visible. ASCITES: Some fluid fluid present within the pelvis. PELVIC ADENOPATHY: None visualized. RETROPERITONEAL ADENOPATHY: No Retroperitoneal Adenopathy visible. URINARY BLADDER: No significant abnormality is seen. OSSEOUS STRUCTURES: No significant abnormality is seen. IMPRESSION: CORRELATE FOR POSSIBLE ELIZABETH'S GANGRENE, GAS-FORMING ORGANISM. Possible cholecystitis. A Yellow level critical message alert has been initiated for Kellie Abebe MD~[id number] via the [employer] | Critical Results System on 12/06/2017 2:54 PM. This message alert has been sent to Kellie schaefer MD~[id number] via the preferences provided by the clinician for the receipt of Radiology Critical F indings. Message ID [id number]."
[2017-12-06 15:45] LABS: C. trachomatis,PCR Positive (Neg,Equiv); Chlamydia trachomatis Source Urine
[2017-12-06 16:50] LABS: Glucose,Whole Blood 170 mg/dL (75-99)
[2017-12-06 20:55] LABS: Glucose,Whole Blood 207 mg/dL (75-99)
--- NOTE | 2017-12-06 21:28 | P.OBCN ---
History of Present Illness Consult date: 12/06/17 Reason for consult: other (enlarging L vulvar abscess) History of present illness: This is a 27-year-old white female 0 LMP of her x-ray 6 weeks ago. Patient noticed a boil-like lesion of the left. 5 days ago which she picked, and drained for a small amount of yellow red fluid. Overnight the lesion worsened and therefore she presented to the emergency room here 4 days ago. A Word catheter was placed, cultures were performed, and oral clindamycin was given. The following day however, the area was larger, more red, very tender. She returned to the emergency room 2 days ago with a temperature was 101, fevers shakes and chills, nausea and vomiting. The swelling now involves the contralateral side and the pain is migrating up into the left lower quadrant. Computed tomography scan of the abdomen was performed and reveals what appear to be gas bubbles in the left vulva, 8-9 cm x 5-6 cm x 3 cm. Gases noted in the soft tissues but no fluid is noted. Past medical history is significant for type 2 diabetes, blood sugar over 300 on admission. Patient has also hypercholesterolemia. Past surgical history is negative. Current medications metformin twice daily and cholesterol medicine daily, neither of which the patient is taking. ALLERGIES none known. 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 She lives with her friend Imelda. Family history is unremarkable, the patient's mother is adopted but is otherwise in good health. On exam this is a pleasant female, 5 foot 11.75 inches, 205 pounds, BMI 27.5. T -max 100.3, pulse 96, respirations 16, 96% O2 saturation on room air, blood pressure 127/72. The general physical exam is within normal limits. HEENT exam is negative, no thyromegaly, good dentition. Chest is clear to auscultation in all benavides anteriorly and posteriorly. Cardiac exam reveals regular rate and rhythm with no murmur click or rub. Breasts are bilaterally symmetric, no skin dimpling nipple discharge or axillary adenopathy. Abdomen is soft and nontender, there is mild tenderness to the left lower quadrant with no rebound. There are active bowel sounds. There is no CVA tenderness. The extremities reveal no edema. There are good peripheral pulses. On inspecting the external genitalia at the left labia is massively edematous, 23 cm superiorly to inferiorly, 18 cm side to side. There is no crepitance to palpating the tissue. There is a small incision in the inferior most area measuring 1.5 cm. Gently a probe is used to probe this region to approximate 6 cm in depth. Immediately purulent fluid with a suite is produced. Patient does voice relief with less tension in the area after gentle probing. White blood cell count 14 on admission, down to 10.3 this morning. Hemoglobin 11.4. Cultures of the wound from 5 days ago in the ER have shown no growth, wound recultured today. Computed tomography scan findings as noted above. Impression: Massively enlarged left vulvar abscess, patient appears improved clinically from admission 48 hours ago. She is being managed on Zosyn and vancomycin per infectious disease. Her blood sugars remain high, on insulin sliding scale. Plan: I discussed with the patient the option of incision and drainage in the operating room. However, at this time I would proceed with clinical monitoring as there has been an improvement in white blood cell count and fever. I would consider reprobing the wound in the morning after analgesic has been given. We' ll continue to follow. Past Medical History Past Medical History: Diabetes Mellitus, Hyperlipidemia, Hypertension Additional Past Medical History / Comment(s): recovering addict and alcoholic, polycystic ovarian syndrome History of Any Multi-Drug Resistant Organisms: None Reported Past Surgical History: No Surgical Hx Reported Past Psychological History: Bipolar Smoking Status: Current every day smoker Past Alcohol Use History: Occasional Past Drug Use History: None Reported Medications and Allergies Home Medications Medication Instructions Recorded Confirmed Type metFORMIN HCL 1,000 mg PO BID 05/16/16 12/05/17 History Loratadine [Claritin] 10 mg PO DAILY 12/03/17 12/05/17 History Clindamycin [Cleocin] 300 mg PO Q6H 12/05/17 12/05/17 History predniSONE 40 mg PO DAILY 12/05/17 12/05/17 History Allergies Allergy/AdvReac Type Severity Reaction Status Date / Time No Known Allergies Allergy Verified 12/05/17 12:08 Exam Vital Signs Temp Pulse Resp BP Pulse Ox 12/06/17 16:00 16 12/06/17 14:18 100.3 F H 96 16 127/72 96 12/06/17 08:00 16 12/06/17 05:41 97.2 F L 83 16 98/55 96 12/05/17 23:00 98.5 F 85 20 105/67 97 Intake and Output 12/06/17 12/06/17 12/06/17 06:59 14:59 22:59 Other: Voiding Method Toilet Toilet # Voids 2 2 Results Result Diagrams: 12/06/17 08:54 12/06/17 08:54 Abnormal Lab Results - Last 24 Hours (Table) 12/05/17 12/05/17 12/06/17 Range/Units 07:25 14:45 07:18 RBC (3.80-5.40) m/uL Neutrophils # (Manual) (1.3-7.7) k/uL Glucose (74-99) mg/dL POC Glucose (mg/dL) 232 H (75-99) mg/dL Hemoglobin A1c 7.7 H (4.0-6.0) % Chlamydia DNA (PCR) Positive H (Neg,Equiv) 12/06/17 12/06/17 12/06/17 Range/Units 08:54 08:54 11:47 RBC 3.62 L (3.80-5.40) m/uL Neutrophils # (Manual) 8.00 H (1.3-7.7) k/uL Glucose 253 H (74-99) mg/dL POC Glucose (mg/dL) 228 H (75-99) mg/dL Hemoglobin A1c (4.0-6.0) % Chlamydia DNA (PCR) (Neg,Equiv) 12/06/17 12/06/17 Range/Units 16:48 20:54 RBC (3.80-5.40) m/uL Neutrophils # (Manual) (1.3-7.7) k/uL Glucose (74-99) mg/dL POC Glucose (mg/dL) 170 H 207 H (75-99) mg/dL Hemoglobin A1c (4.0-6.0) % Chlamydia DNA (PCR) (Neg,Equiv) Microbiology - Last 24 Hours (Table) 12/06/17 11:10 Anaerobic Culture - Preliminary Labia 12/06/17 11:10 Wound Culture - Preliminary Other - Other 12/04/17 19:04 Blood Culture - Preliminary Blood No Growth after 24 hours
[2017-12-07] MEDS: IBUPROFEN 400 MG TAB PO PRN (02:44)
[2017-12-07] MEDS: VANCOMYCIN 1,500 MG in SODIUM CHLORIDE 0.9% 250 ML IVPB SCH ×3 (03:26→20:28)
[2017-12-07] MEDS: PIPERACILLIN-TAZOBACTAM 3.375 GM in DEXTROSE/WATER 1 50ML.BAG IVPB SCH ×3 (06:22→22:26)
[2017-12-07] MEDS: KETOROLAC 30 MG/ML 1 ML VIAL IVP PRN ×3 (06:26→20:47)
[2017-12-07 07:18] LABS: Glucose,Whole Blood 170 mg/dL (75-99)
[2017-12-07] MEDS: INSULIN ASPART 100 UNIT/ML 1 ML 10 ML VIAL SQ SCH ×4 (07:33→21:55)
--- NOTE | 2017-12-07 07:50 | P.PN ---
Subjective Progress Note Date: 12/07/17 Principal diagnosis: Hospital day #3, extensive left vulvar abscess Slept well. Still with periods of fever. Nausea improved, no further emesis Objective - Vital Signs Vital signs: Vital Signs Temp 99.6 F 12/07/17 06:33 Pulse 86 12/07/17 06:33 Resp 18 12/07/17 06:33 BP 113/73 12/07/17 06:33 Pulse Ox 96 12/07/17 06:33 Intake & Output 12/06/17 12/07/17 12/07/17 18:59 06:59 18:59 Other: Voiding Method Toilet # Voids 2 1 - Constitutional General appearance: Present: average body habitus, cooperative - EENT Eyes: Present: PERRLA ENT: Present: hearing grossly normal - Neck Neck: Present: normal ROM Thyroid: bilateral: normal size - Respiratory Respiratory: bilateral: CTA - Cardiovascular Rhythm: regular - Gastrointestinal General gastrointestinal: Present: normal bowel sounds Localized gastrointestinal: tender: LUQ, suprabubic, guarding: LUQ, suprabubic - Genitourinary Genitourinary Comment(s): Left vulvar region slightly improved. Still with extensive erythema, edema, cellulitis. No obvious crepitance to physical exam. Exquisitely tender. Drainage continues, yellow-lema and malodorous. - Neurologic Neurologic: Present: CNII-XII intact - Psychiatric Psychiatric: Present: A&O x's 3, appropriate affect, intact judgment & insight - Labs CBC & Chem 7: 12/06/17 08:54 12/06/17 08:54 Labs: Abnormal Lab Results - Last 24 Hours (Table) 12/05/17 12/05/17 12/06/17 Range/Units 07:25 14:45 08:54 RBC 3.62 L (3.80-5.40) m/uL Neutrophils # (Manual) 8.00 H (1.3-7.7) k/uL Glucose (74-99) mg/dL POC Glucose (mg/dL) (75-99) mg/dL Hemoglobin A1c 7.7 H (4.0-6.0) % Chlamydia DNA (PCR) Positive H (Neg,Equiv) 12/06/17 12/06/17 12/06/17 Range/Units 08:54 11:47 16:48 RBC (3.80-5.40) m/uL Neutrophils # (Manual) (1.3-7.7) k/uL Glucose 253 H (74-99) mg/dL POC Glucose (mg/dL) 228 H 170 H (75-99) mg/dL Hemoglobin A1c (4.0-6.0) % Chlamydia DNA (PCR) (Neg,Equiv) 12/06/17 12/07/17 Range/Units 20:54 07:00 RBC (3.80-5.40) m/uL Neutrophils # (Manual) (1.3-7.7) k/uL Glucose (74-99) mg/dL POC Glucose (mg/dL) 207 H 170 H (75-99) mg/dL Hemoglobin A1c (4.0-6.0) % Chlamydia DNA (PCR) (Neg,Equiv) Microbiology - Last 24 Hours (Table) 12/06/17 11:10 Gram Stain - Preliminary Other - Other Wound Culture - Preliminary 12/04/17 19:04 Blood Culture - Preliminary Blood No Growth after 48 hours 12/06/17 11:10 Anaerobic Culture - Preliminary Labia Assessment and Plan Assessment: Extensive left vulvar abscess, radiographic evidence of gas bubbles, concern for necrotizing fasciitis. Plan: I discussed with the patient the option of incision and drainage of this abscess in the operating room. There is no radiographic evidence of spread into the thigh or abdominal wall, however patient's left lower quadrant tenderness is a clinical concern. Cultures are still pending, although positive urine chlamydia is noted. We'll discuss again with infectious disease , likely plan for I&D in the operative room tomorrow. All risks, benefits and alternatives of this plan have been discussed with the patient in detail. All questions answered. Time with Patient: Less than 30
--- NOTE | 2017-12-07 08:16 | P.GSCN ---
History of Present Illness Consult date: 12/06/17 Reason for Consult: Infected Bartholin's cyst History of present illness: This a 27-year-old female who underwent incision and drainage of an infected Bartholin's cyst in the emergency room. Patient was admitted to the medical service receiving IV antibiotics. The patient increased cellulitis of her left labia and inguinal area. We have been asked this see her regarding her infected Bartholin's cyst area The patient states his had some increased pain and swelling in the area. She is currently being evaluated by [facility] [employer]. The patient is a diabetic. Past Medical History Past Medical History: Diabetes Mellitus, Hyperlipidemia, Hypertension Additional Past Medical History / Comment(s): recovering addict and alcoholic, polycystic ovarian syndrome History of Any Multi-Drug Resistant Organisms: None Reported Past Surgical History: No Surgical Hx Reported Past Psychological History: Bipolar Smoking Status: Current every day smoker Past Alcohol Use History: Occasional Past Drug Use History: None Reported Medications and Allergies Home Medications Medication Instructions Recorded Confirmed Type metFORMIN HCL 1,000 mg PO BID 05/16/16 12/05/17 History Loratadine [Claritin] 10 mg PO DAILY 12/03/17 12/05/17 History Clindamycin [Cleocin] 300 mg PO Q6H 12/05/17 12/05/17 History predniSONE 40 mg PO DAILY 12/05/17 12/05/17 History Allergies Allergy/AdvReac Type Severity Reaction Status Date / Time No Known Allergies Allergy Verified 12/05/17 12:08 Surgical - Exam Vital Signs Temp Pulse Resp BP Pulse Ox 98.8 F 111 H 18 130/80 98 12/04/17 18:16 12/04/17 18:16 12/04/17 18:16 12/04/17 18:16 12/04/17 18:16 - General well developed, no distress - Eyes PERRL - ENT normal pinna - Neck no masses - Respiratory normal expansion - Cardiovascular Rhythm: regular - Abdomen Abdomen: soft, non tender - Genitourinary The patient has an obviously inflamed left labia. There is a small puncture incision from her recent incision and drainage. There is cellulitis extending up along the left side of her mons pubis. The area is tender. Results - Labs 12/06/17 08:54 12/06/17 08:54 Abnormal Lab Results - Last 24 Hours (Table) 12/05/17 12/05/17 12/06/17 Range/Units 07:25 14:45 08:54 RBC 3.62 L (3.80-5.40) m/uL Neutrophils # (Manual) 8.00 H (1.3-7.7) k/uL Glucose (74-99) mg/dL POC Glucose (mg/dL) (75-99) mg/dL Hemoglobin A1c 7.7 H (4.0-6.0) % Chlamydia DNA (PCR) Positive H (Neg,Equiv) 12/06/17 12/06/17 12/06/17 Range/Units 08:54 11:47 16:48 RBC (3.80-5.40) m/uL Neutrophils # (Manual) (1.3-7.7) k/uL Glucose 253 H (74-99) mg/dL POC Glucose (mg/dL) 228 H 170 H (75-99) mg/dL Hemoglobin A1c (4.0-6.0) % Chlamydia DNA (PCR) (Neg,Equiv) 12/06/17 12/07/17 Range/Units 20:54 07:00 RBC (3.80-5.40) m/uL Neutrophils # (Manual) (1.3-7.7) k/uL Glucose (74-99) mg/dL POC Glucose (mg/dL) 207 H 170 H (75-99) mg/dL Hemoglobin A1c (4.0-6.0) % Chlamydia DNA (PCR) (Neg,Equiv) Microbiology - Last 24 Hours (Table) 12/06/17 11:10 Gram Stain - Preliminary Other - Other Wound Culture - Preliminary 12/04/17 19:04 Blood Culture - Preliminary Blood No Growth after 48 hours 12/06/17 11:10 Anaerobic Culture - Preliminary Labia Diabetes panel 12/05/17 12/06/17 Range/Units 07:25 08:54 Sodium 138 (137-145) mmol/L Potassium 3.7 (3.5-5.1) mmol/L Chloride 105 (98-107) mmol/L Carbon Dioxide 26 (22-30) mmol/L BUN 17 (7-17) mg/dL Creatinine 0.90 (0.52-1.04) mg/dL Glucose 253 H (74-99) mg/dL Hemoglobin A1c 7.7 H (4.0-6.0) % Calcium 8.7 (8.4-10.2) mg/dL Calcium panel 12/06/17 Range/Units 08:54 Calcium 8.7 (8.4-10.2) mg/dL Pituitary panel 12/06/17 Range/Units 08:54 Sodium 138 (137-145) mmol/L Potassium 3.7 (3.5-5.1) mmol/L Chloride 105 (98-107) mmol/L Carbon Dioxide 26 (22-30) mmol/L BUN 17 (7-17) mg/dL Creatinine 0.90 (0.52-1.04) mg/dL Glucose 253 H (74-99) mg/dL Calcium 8.7 (8.4-10.2) mg/dL Adrenal panel 12/06/17 Range/Units 08:54 Sodium 138 (137-145) mmol/L Potassium 3.7 (3.5-5.1) mmol/L Chloride 105 (98-107) mmol/L Carbon Dioxide 26 (22-30) mmol/L BUN 17 (7-17) mg/dL Creatinine 0.90 (0.52-1.04) mg/dL Glucose 253 H (74-99) mg/dL Calcium 8.7 (8.4-10.2) mg/dL - Imaging CT scan - abdomen: report reviewed (Inflammation along the left labia. There is a small foci of air most likely related to her previous incision drainage) Assessment and Plan Assessment: Infected arthrolysis of left labia. Patient has severe cellulitis. Her CAT scan does not show evidence of any significant abscess at this time. The small amount of air seen on the CAT scan is most likely related to her incision and drainage. She will be followed. We'll continue IV antibiotics. She will be evaluated by [facility] [employer].
[2017-12-07] MEDS: SODIUM CHLORIDE 0.9% 1,000 ML IV SCH ×2 (09:39→20:29)
[2017-12-07] MEDS: ACETAMINOPHEN TAB 325 MG TAB PO PRN ×2 (10:50→21:56)
[2017-12-07 11:56] LABS: Glucose,Whole Blood 232 mg/dL (75-99)
[2017-12-07] MEDS ORDERED: INFLUENZA VACCINE (6 MOS+) 60 MCG/0.5 ML SYRINGE IM ONE (12:06)
--- NOTE | 2017-12-07 12:25 | P.PN ---
Subjective Progress Note Date: 12/07/17 Pleasant 27-year-old female being seen at the bedside this morning. Patient states continues to have tenderness and soreness to the left vulvar abscess area area is extremely tender to the touch. Significant erythema with edema noted. Scant amount of yellow grayish odorous drainage noted. Mild tenderness to the left upper quadrant. Left suprapubic area mild redness noted. Reports a nausea sensation improving no emesis. Patient states it's painful to sit upright Did note BRAND RECORDER's plan was to do an incision and drainage in the operating room tomorrow. Wound cultures are pending positive urine for chlamydia noted being followed by infectious disease Dr. Abebe Patients being seen at the request of the attending by surgical service for infected bartholin cyst. Patient had undergone an incision and drainage of the infected bartholin cyst CAT scan was reviewed by the surgeon did not show any significant abscess at this time. Small amount of air seen on the CAT scan likely related to her incision and drainage. The plan is to continue to follow patient continue IV antibiotics as ordered Objective - Vital Signs Vital signs: Vital Signs Temp 99.6 F 12/07/17 06:33 Pulse 86 12/07/17 06:33 Resp 18 12/07/17 08:00 BP 113/73 12/07/17 06:33 Pulse Ox 96 12/07/17 06:33 Intake & Output 12/06/17 12/07/17 12/07/17 18:59 06:59 18:59 Other: Voiding Method Toilet Toilet # Voids 2 1 - Exam Physical exam 27-year-old female sitting up in bed appears in no acute distress Lungs adequate air movement bilaterally no shortness of breath on room air heart S1-S2 audible regular Abdomen soft nondistended nontender no nausea no vomiting no stooling Genitourinary significant edema with tenderness to the left labia small puncture incision from the recent incision and drainage done in the emergency room extensive left vulvar abscess left suprapubic upper quadrant mild redness noted. The left vulvar region extensively swollen edematous and extremely tender to the touch draining a scant amount of yellowish drainage with a noted Extremities no edema noted - Labs CBC & Chem 7: 12/06/17 08:54 12/06/17 08:54 Labs: Abnormal Lab Results - Last 24 Hours (Table) 12/05/17 12/06/17 12/06/17 Range/Units 14:45 16:48 20:54 POC Glucose (mg/dL) 170 H 207 H (75-99) mg/dL Chlamydia DNA (PCR) Positive H (Neg,Equiv) 12/07/17 12/07/17 Range/Units 07:00 11:55 POC Glucose (mg/dL) 170 H 232 H (75-99) mg/dL Chlamydia DNA (PCR) (Neg,Equiv) Microbiology - Last 24 Hours (Table) 12/06/17 11:10 Gram Stain - Preliminary Other - Other Wound Culture - Preliminary 12/04/17 19:04 Blood Culture - Preliminary Blood No Growth after 48 hours 12/06/17 11:10 Anaerobic Culture - Preliminary Labia Assessment and Plan Assessment: Impression Present on admission left vulvar with extensive erythema edema and cellulitis measuring 23 cm superiorly to inferior 18 cm right side Present on admission left vulvar abscess with radiographic evidence of gas bubbles concern for necrotizing fasciitis Present on admission leukocytosis suspect due to infectious process Episodes of febrile Plan Continue recommendations BRAND RECORDER for tomorrow incision and drainage affected area Pain control IV antibiotics per infectious disease DVT and GI prophylaxis Infectious disease to follow-up on cultures Await further recommendations BRAND RECORDER Will follow with you Continue supportive care The above impression and plan of care have been discussed and directed by signing physician. Mayela Echeverria nurse practitioner acting as scribe for signing physician.
[2017-12-07 14:10] LABS: N. gonorrhoeae,PCR Negative (Neg,Equiv); Neisseria Source Urine
--- NOTE | 2017-12-07 15:07 | P.PN ---
Subjective 27-year-old admitted for Bartholin's abscess. Patient is on not outreach representative Bactrim and vancomycin infectious disease is following the patient patient blood sugars are bit elevated patient is a diabetic will continue sliding scale insulin was switched to oral hypoglycemic agents upon discharge. Patient will undergo incision and drainage. Objective - Vital Signs Vital signs: Vital Signs Temp 99.6 F 12/07/17 06:33 Pulse 86 12/07/17 06:33 Resp 18 12/07/17 08:00 BP 113/73 12/07/17 06:33 Pulse Ox 96 12/07/17 06:33 Intake & Output 12/06/17 12/07/17 12/07/17 18:59 06:59 18:59 Other: Voiding Method Toilet Toilet # Voids 2 1 3 - Exam PHYSICAL EXAMINATION: GENERAL: The patient is alert and oriented x3, not in any acute distress. Well developed, well nourished. HEENT: Pupils are round and equally reacting to light. EOMI. No scleral icterus. No conjunctival pallor. Normocephalic, atraumatic. No pharyngeal erythema. No thyromegaly. CARDIOVASCULAR: S1 and S2 present. No murmurs, rubs, or gallops. PULMONARY: Chest is clear to auscultation, no wheezing or crackles. ABDOMEN: Soft, nontender, nondistended, normoactive bowel sounds. No palpable organomegaly. I did not perform genitourinary exam. MUSCULOSKELETAL: No joint swelling or deformity. EXTREMITIES: No cyanosis, clubbing, or pedal edema. NEUROLOGICAL: Gross neurological examination did not reveal any focal deficits. SKIN: No rashes. - Labs CBC & Chem 7: 12/06/17 08:54 12/06/17 08:54 Labs: Abnormal Lab Results - Last 24 Hours (Table) 12/05/17 12/06/17 12/06/17 Range/Units 14:45 16:48 20:54 POC Glucose (mg/dL) 170 H 207 H (75-99) mg/dL Chlamydia DNA (PCR) Positive H (Neg,Equiv) 12/07/17 12/07/17 Range/Units 07:00 11:55 POC Glucose (mg/dL) 170 H 232 H (75-99) mg/dL Chlamydia DNA (PCR) (Neg,Equiv) Microbiology - Last 24 Hours (Table) 12/06/17 11:10 Gram Stain - Preliminary Other - Other Wound Culture - Preliminary 12/04/17 19:04 Blood Culture - Preliminary Blood No Growth after 48 hours 12/06/17 11:10 Anaerobic Culture - Preliminary Labia Assessment and Plan Plan: -Bartholin's abscess: Incision and drainage tomorrow can you with the above- mentioned antibiotics vancomycin and Zosyn. Continue with the Toradol for pain. -Type 2 diabetes mellitus: Uncontrolled blood sugars, continue with sliding scale insulin for now -Recent bronchitis will not require any more prednisone. -Nicotine abuse: Counseling was provided -History of PCOD-metformin will be continued upon discharge. -Obesity: Counseling was provided
[2017-12-07 16:58] LABS: Glucose,Whole Blood 220 mg/dL (75-99)
[2017-12-07] MEDS ORDERED: DEXAMETHASONE SOD PHOSPHATE 10 MG/ML 1 ML VIAL IV ONE (17:18)
[2017-12-07] MEDS ORDERED: ONDANSETRON 4 MG/2 ML VIAL IVP ONE (17:18)
[2017-12-07] MEDS ORDERED: MORPHINE SULFATE 4 MG/ML SYRINGE IV PRN (17:18)
[2017-12-07] MEDS ORDERED: ONDANSETRON 4 MG/2 ML VIAL IVP PRN (17:18)
[2017-12-07] MEDS ORDERED: HYDROmorphone 0.5 MG/0.5 ML SYRINGE IVP PRN (17:18)
[2017-12-07 20:52] LABS: Glucose,Whole Blood 204 mg/dL (75-99)
[2017-12-07] MEDS ORDERED: AZITHROMYCIN 500 MG TAB PO STA (21:47)
--- NOTE | 2017-12-07 22:20 | PN ---
PROGRESS NOTE DATE OF SERVICE: 12/07/2017. REASON FOR FOLLOWUP: 1. Left labial abscess and pelvic inflammatory disease. 2. Acute chlamydia infection. INTERVAL HISTORY: The patient is currently afebrile. She is breathing comfortably. Denies having any chest pain, shortness of breath, cough, no abdominal pain. Pain to the left labia slightly decreased with minimal drainage. EXAMINATION: Blood pressure 124/61 with a pulse of 73, temperature of 97.5. She is 99% on room air. Description is a middle aged female lying in bed in no distress. Respiratory system unlabored breathing. Clear to auscultation anteriorly. Heart S1, S2. Regular rate and rhythm. Abdomen is soft. No tenderness. Left labial area swelling and redness has slightly decreased. No drainage. LABS: No CBC was done today. DIAGNOSTIC IMPRESSION AND PLAN: 1. Patient with left labial abscess, concern for pelvic inflammatory disease. The patient has been evaluated by DIRECT SUPPORT PROFESSIONAL CAREGIVER and scheduled for an I and D of this area tomorrow morning. She will continue vancomycin, Zosyn to which the patient seemed to have clinically responding. 2. Patient with a positive urine test for chlamydia. We will give a 1 g dose of azithromycin x1 and advise treatment. 3. Continue supportive care. MMODL / IJN: [id number] /
[2017-12-08] MEDS: VANCOMYCIN 1,500 MG in SODIUM CHLORIDE 0.9% 250 ML IVPB SCH ×3 (03:15→20:39)
[2017-12-08] MEDS: SODIUM CHLORIDE 0.9% 1,000 ML IV SCH ×2 (03:16→17:57)
[2017-12-08] MEDS: PIPERACILLIN-TAZOBACTAM 3.375 GM in DEXTROSE/WATER 1 50ML.BAG IVPB SCH ×3 (04:49→20:39)
[2017-12-08 07:23] LABS: Glucose,Whole Blood 191 mg/dL (75-99)
[2017-12-08] MEDS ORDERED: ACETAMINOPHEN IV (For NPO) 1,000 MG in EMPTY BAG 1 BAG IVPB ONE (08:00)
[2017-12-08] MEDS: INSULIN ASPART 100 UNIT/ML 1 ML 10 ML VIAL SQ SCH ×4 (10:34→21:01)
[2017-12-08 11:34] LABS: Basophils % (A) 0 %; Eosinophils # (A) 0.2 k/uL (0-0.7); Eosinophils % (A) 2 %; HCT 35.1 % (34.0-46.0); HGB 11.4 gm/dL (11.4-16.0); Lymphocytes # (A) 1.1 k/uL (1.0-4.8); Lymphocytes % (A) 14 %; MCH 31.2 pg (25.0-35.0); MCHC 32.5 g/dL (31.0-37.0); Monocytes # (A) 0.4 k/uL (0-1.0); Monocytes % (A) 5 %; Neutrophils # (A) 6.2 k/uL (1.3-7.7); Neutrophils % (A) 77 %; Platelet Count 299 k/uL (150-450); RBC 3.65 m/uL (3.80-5.40); WBC 8.1 k/uL (3.8-10.6)
[2017-12-08 11:55] LABS: Glucose,Whole Blood 137 mg/dL (75-99)
[2017-12-08] MEDS ORDERED: IV FLUID CONTINUATION 1,000 ML IV ONE ×2 (11:59)
[2017-12-08] MEDS ORDERED: ONDANSETRON 4 MG/2 ML VIAL IVP ONE (12:00)
[2017-12-08] MEDS ORDERED: MIDAZOLAM 2 MG/2 ML VIAL ONE (12:08)
[2017-12-08] MEDS ORDERED: fentaNYL (PF) 50 MCG/ML 2 ML AMP ONE (12:08)
[2017-12-08] MEDS ORDERED: PROPOFOL 10 MG/ML 20 ML VIAL IV ONE (12:08)
[2017-12-08] MEDS ORDERED: KETOROLAC 30 MG/ML 1 ML VIAL ONE (12:08)
[2017-12-08] MEDS ORDERED: LIDOCAINE 1% INJ 10MG/ML (20 ML MDV) ONE (12:08)
--- NOTE | 2017-12-08 12:58 | P.OP ---
Date of Procedure: 12/08/17 Preoperative Diagnosis: Extensive left vulvar abscess Postoperative Diagnosis: Multi-loculated left vulvar abscess Procedure(s) Performed: Incision and drainage, debridement left vulvar abscess, wound cultures and packing Anesthesia: YOKASTA Surgeon: Mee Boogie Estimated Blood Loss (ml): 100 IV fluids (ml): 200 Urine output (ml): 100 Pathology: other (Wound cultures sent, aerobic and anaerobic) Condition: stable Disposition: PACU Operative Findings: Abscess cavity 6 cm deep, 12 cm anterior to posterior, 6 cm wide. Description of Procedure: Patient is brought to the operating room. She is placed in the dorsal lithotomy position after administration of general anesthesia. The appropriate timeout is performed to assure proper patient and procedural identification. The perineal body is prepped and draped in the usual sterile fashion. The bladder is drained for 100 mL of clear yellow urine. The left vulvar abscess is incised with a 6 cm incision. Immediately upon entering the abscess grew a yellow purulence, malodorous, is encountered. Wound cultures are taken deep into the abscess cavity. My finger is then used to breakup multiple loculations , extending superior to the periclitoral area well into the left mons. A sponge is used and the fascial cavity is inspected. There is no nathalie evidence of necrotizing fasciitis. The fascia appears inflamed, but white yellow without evidence of breakdown or greatly material. Once I am satisfied that all of the abscess cavities have been broken, the wound is generously irrigated with sterile saline with an Asepto syringe. It is then irrigated with Betadine, and re-irrigated with sterile saline. The edges of the incision are cauterized for excellent hemostasis. The wound is packed with a 1 inch plain iodophor gauze, the entire length of the packing is placed. The wound is clean and dry upon completion of procedure. All sponge needle and enhancement counts are correct. Patient is brought back to recovery room in stable condition with a blood pressure of 131/71, pulse 84, 94% O2 saturation. She will continue on Zosyn and vancomycin per infectious disease specialists.
[2017-12-08] MEDS ORDERED: fentaNYL (PF) 50 MCG/ML 2 ML AMP IVP ONE (13:01)
[2017-12-08 13:14] LABS: Glucose,Whole Blood 139 mg/dL (75-99)
[2017-12-08] MEDS: LACTATED RINGERS 1,000 ML IV SCH ×2 (13:47→18:29)
[2017-12-08] MEDS: KETOROLAC 30 MG/ML 1 ML VIAL IVP PRN ×2 (14:14→20:39)
[2017-12-08] MEDS: HYDROcodone/APAP 5-325MG 1 EACH TAB PO PRN ×2 (14:15→20:40)
--- NOTE | 2017-12-08 16:33 | P.PN ---
Subjective Progress Note Date: 12/08/17 Progress note being dictated for Dr. Vargas. Interval history:27-year-old admitted for Bartholin's abscess. Patient is on not industrial relations representative Bactrim and vancomycin infectious disease is following the patient patient blood sugars are bit elevated patient is a diabetic will continue sliding scale insulin was switched to oral hypoglycemic agents upon discharge. Patient will undergo incision and drainage. 12/08/2017 T-max 100. Scheduled for I&D with INDUSTRIAL [employer]FET[employer] MANAGER today. Maintained on IV antibiotics of Zosyn and vancomycin. Pain controlled, minimal drainage. Denies chest pain, palpitations or shortness of breath. Objective - Vital Signs Vital signs: Vital Signs Temp 97.7 F 12/08/17 14:47 Pulse 76 12/08/17 14:47 Resp 16 12/08/17 14:47 BP 130/74 12/08/17 14:47 Pulse Ox 96 12/08/17 14:47 Intake & Output 12/07/17 12/08/17 12/08/17 18:59 06:59 18:59 Intake Total 830 785 Output Total 200 Balance 830 585 Intake: IV 375 Intake, IV Titration 830 410 Amount Lactated Ringers 1,000 ml 160 @ 20 mls/hr IV .Q24H [facility] Rx#:[id number] Piperacillin-Tazobactam 3 100 .375 gm In Dextrose/Water 1 50ml.bag @ 12.5 mls/hr IVPB Q8H [facility] Rx#: [id number] Sodium Chloride 0.9% 1, 480 000 ml @ 60 mls/hr IV . [id number] [facility] Rx#:[id number] Vancomycin 1,500 mg In 250 250 Sodium Chloride 0.9% 250 ml @ 125 mls/hr IVPB Q8H [facility] Rx#:[id number] Output: Urine 100 Estimated Blood Loss 100 Other: Voiding Method Toilet # Voids 3 1 2 # Bowel Movements 0 - Exam GENERAL: The patient is alert and oriented x3, not in any acute distress. HEENT: Pupils are round and equally reacting to light. EOMI. No scleral icterus. No conjunctival pallor. Normocephalic, atraumatic. CARDIOVASCULAR: S1 and S2 present. No murmurs, rubs, or gallops. PULMONARY: Chest is clear to auscultation, no wheezing or crackles. ABDOMEN: Soft, nontender, nondistended, normoactive bowel sounds. No palpable organomegaly. Patient on OR cart, I did not perform genitourinary exam. MUSCULOSKELETAL: No joint swelling or deformity. EXTREMITIES: No cyanosis, clubbing, or pedal edema. NEUROLOGICAL: Gross neurological examination did not reveal any focal deficits. SKIN: No rashes. - Labs CBC & Chem 7: 12/08/17 10:51 12/06/17 08:54 Labs: Abnormal Lab Results - Last 24 Hours (Table) 12/07/17 12/07/17 12/08/17 Range/Units 16:57 20:51 07:20 RBC (3.80-5.40) m/uL POC Glucose (mg/dL) 220 H 204 H 191 H (75-99) mg/dL 12/08/17 12/08/17 12/08/17 Range/Units 10:51 11:53 13:09 RBC 3.65 L (3.80-5.40) m/uL POC Glucose (mg/dL) 137 H 139 H (75-99) mg/dL Microbiology - Last 24 Hours (Table) 12/06/17 11:10 Gram Stain - Preliminary Other - Other Wound Culture - Preliminary 12/04/17 19:04 Blood Culture - Preliminary Blood No Growth after 72 hours Assessment and Plan Assessment: -Bartholin's abscess: Incision and drainage pending -Acute chlamydia infection -Type 2 diabetes mellitus -Recent bronchitis will not require any more prednisone. -Nicotine abuse: Counseling was provided -History of PCOD -Obesity, BMI is 27.5 Plan: Continue on current medication regime ,monitoring and symptomatic treatment. Maintain IV antibiotics. I&D Pending. Close monitoring of blood sugars. The impression and plan of care has been dictated as directed. : I performed a history and examination of this patient, discussed the same with the dictator. I agree with the dictator's note ,documented as a scribe. Any additional findings or plans will be noted.
[2017-12-08 17:27] LABS: Glucose,Whole Blood 320 mg/dL (75-99)
[2017-12-08 20:34] LABS: Glucose,Whole Blood 304 mg/dL (75-99)
--- NOTE | 2017-12-08 23:42 | PN ---
PROGRESS NOTE DATE OF SERVICE: 12/08/2017 REASON FOR FOLLOWUP: Left labial abscess. INTERVAL HISTORY: The patient is afebrile. The patient is status post debridement of the left labial abscess by OB with deep culture obtained. Post surgery the patient is seen. She is complaining of some pain to the area but denies having any chest pain, shortness of breath or cough. No abdominal pain and no diarrhea. PHYSICAL EXAMINATION: Blood pressure is 130/74 with a pulse of 73, temperature 97.7. She is 96% on room air. General description is a middle-aged female lying in bed in no distress. RESPIRATORY SYSTEM: Unlabored breathing. Clear to auscultation anteriorly. HEART: S1, S2. Regular rate and rhythm. ABDOMEN: Soft. EXTREMITIES: No edema of the feet. LABS: White count normalized to 8.1. DIAGNOSTIC IMPRESSION AND PLAN: Patient with left labial abscess, status post surgical debridement. We are waiting for the deep culture to finalize. Will keep the patient on the vancomycin and Zosyn, to which the patient seems to have some clinical response. Continue with supportive care. MMODL / IJN: [id number] /
[2017-12-09] MEDS: SODIUM CHLORIDE 0.9% 1,000 ML IV SCH ×3 (01:30→20:20)
[2017-12-09] MEDS: PIPERACILLIN-TAZOBACTAM 3.375 GM in DEXTROSE/WATER 1 50ML.BAG IVPB SCH ×3 (04:35→20:20)
[2017-12-09] MEDS: VANCOMYCIN 1,500 MG in SODIUM CHLORIDE 0.9% 250 ML IVPB SCH ×3 (04:36→20:20)
[2017-12-09] MEDS: KETOROLAC 30 MG/ML 1 ML VIAL IVP PRN ×2 (06:27→13:57)
[2017-12-09] MEDS: HYDROcodone/APAP 5-325MG 1 EACH TAB PO PRN ×3 (06:28→23:31)
[2017-12-09 07:35] LABS: Glucose,Whole Blood 231 mg/dL (75-99)
--- NOTE | 2017-12-09 07:57 | P.PN ---
Subjective Progress Note Date: 12/09/17 Principal diagnosis: Postoperative day #1, status post incision and drainage of left vulvar abscess Patient reports pain is greatly improved. She has had no further shakes or chills. Good appetite. Objective - Vital Signs Vital signs: Vital Signs Temp 97.9 F 12/08/17 23:00 Pulse 70 12/08/17 23:00 Resp 20 12/08/17 23:00 BP 121/72 12/08/17 23:00 Pulse Ox 95 12/08/17 23:00 Intake & Output 12/08/17 12/09/17 12/09/17 18:59 06:59 18:59 Intake Total 785 Output Total 200 Balance 585 Intake: IV 375 Intake, IV Titration 410 Amount Lactated Ringers 1,000 ml 160 @ 20 mls/hr IV .Q24H [facility] Rx#:[id number] Vancomycin 1,500 mg In 250 Sodium Chloride 0.9% 250 ml @ 125 mls/hr IVPB Q8H [facility] Rx#:[id number] Output: Urine 100 Estimated Blood Loss 100 Other: # Voids 2 2 # Bowel Movements 0 - Constitutional General appearance: Present: average body habitus, cooperative - EENT Eyes: Present: PERRLA ENT: Present: hearing grossly normal - Neck Neck: Present: normal ROM - Respiratory Respiratory: bilateral: CTA - Cardiovascular Rhythm: regular - Gastrointestinal General gastrointestinal: Present: normal bowel sounds Localized gastrointestinal: surgical scar: LUQ (Pain greatly improved, now 1 out of 10. No repain greatly improved, no rebound or guarding.) - Integumentary Integumentary Comment(s): Left vulvar wound packing removed. No further drainage. Wound repacked with one-inch gauze, utilizing forceps. Tolerated well. Overall erythema greatly improved, edema decreased, no redness into the thigh. Mons and right labia greatly improved. Integumentary: Present: normal - Neurologic Neurologic: Present: CNII-XII intact - Musculoskeletal Musculoskeletal: Present: gait normal, strength equal bilaterally - Psychiatric Psychiatric: Present: A&O x's 3, appropriate affect, intact judgment & insight - Labs CBC & Chem 7: 12/08/17 10:51 12/06/17 08:54 Labs: Abnormal Lab Results - Last 24 Hours (Table) 12/08/17 12/08/17 12/08/17 Range/Units 10:51 11:53 13:09 RBC 3.65 L (3.80-5.40) m/uL POC Glucose (mg/dL) 137 H 139 H (75-99) mg/dL 12/08/17 12/08/17 12/09/17 Range/Units 17:19 20:32 07:30 RBC (3.80-5.40) m/uL POC Glucose (mg/dL) 320 H 304 H 231 H (75-99) mg/dL Microbiology - Last 24 Hours (Table) 12/08/17 12:32 Genital Culture - Preliminary Genital 12/04/17 19:04 Blood Culture - Preliminary Blood No Growth after 96 hours 12/06/17 11:10 Gram Stain - Preliminary Other - Other Wound Culture - Preliminary Assessment and Plan Assessment: Doing well postoperative day #1. Continued hyperglycemia. Plan: At this point I would follow the patient as needed. Suspect recommendation from infectious disease will be daily wound packing change, wet-to-dry. May consider home healthcare nursing to follow. I will see the patient in the office in 2 weeks for postoperative follow-up at this time. Thank you for the consultation. Time with Patient: Greater than 30
[2017-12-09] MEDS: IBUPROFEN 400 MG TAB PO PRN ×2 (08:12→20:21)
--- NOTE | 2017-12-09 08:27 | P.PN ---
Progress Note - Text Progress Note Date: 12/09/17 We'll see patient on an as-needed basis will sign off for now re-eval if needed The above impression and plan of care have been discussed and directed by signing physician. Mayela Echeverria nurse practitioner acting as scribe for signing physician.
[2017-12-09 09:43] LABS: Basophils # (A) 0.1 k/uL (0-0.2); Basophils % (A) 1 %; Eosinophils # (A) 0.1 k/uL (0-0.7); Eosinophils % (A) 1 %; HCT 36.1 % (34.0-46.0); HGB 11.3 gm/dL (11.4-16.0); Lymphocytes # (A) 1.3 k/uL (1.0-4.8); Lymphocytes % (A) 16 %; MCH 31.6 pg (25.0-35.0); MCHC 31.2 g/dL (31.0-37.0); Mean Platelet Volume 6.9; Monocytes # (A) 0.3 k/uL (0-1.0); Monocytes % (A) 4 %; Neutrophils % (A) 76 %; Platelet Count 301 k/uL (150-450); RBC 3.56 m/uL (3.80-5.40); WBC 7.9 k/uL (3.8-10.6)
[2017-12-09 09:56] LABS: Anion Gap 8 mmol/L; Blood Urea Nitrogen 16 mg/dL (7-17); Calcium 8.7 mg/dL (8.4-10.2); Carbon Dioxide 25 mmol/L (22-30); Chloride 108 mmol/L (98-107); Glucose 199 mg/dL (74-99); Potassium 4.6 mmol/L (3.5-5.1); Sodium 141 mmol/L (137-145)
[2017-12-09 10:11] LABS: MCV 101.4 fL (80.0-100.0)
[2017-12-09] MEDS: INSULIN ASPART 100 UNIT/ML 1 ML 10 ML VIAL SQ SCH ×4 (10:25→21:47)
[2017-12-09 11:52] LABS: Glucose,Whole Blood 259 mg/dL (75-99)
[2017-12-09] MEDS: metFORMIN 500 MG TAB PO SCH ×2 (13:58→20:20)
--- NOTE | 2017-12-09 16:19 | PN ---
PROGRESS NOTE DATE OF SERVICE: 12/09/2017. REASON FOR FOLLOWUP: Left labial abscess and possible PID. INTERVAL HISTORY: The patient is currently afebrile. Pain to the left labia is currently controlled. The packing was removed this morning which was painful for her. The lower abdominal pain has improved. Denies having any chest pain, shortness of breath or cough and no diarrhea. EXAMINATION: Blood pressure is 135/81 with a pulse of 82, temperature 98.1. She is 93% on room air. General description is a middle aged female, lying in bed in no distress. Respiratory system: Unlabored breathing. Clear to auscultation anteriorly. Heart S1, S2. Regular rate and rhythm. ABDOMEN: Soft. No tenderness. The left labial culture showing anaerobic gram-positive and gram-negative bacilli. DIAGNOSTIC IMPRESSION/PLAN: Patient with left labial abscess status post drainage. Culture predominantly anaerobic gram positive as well as gram-negative. Patient currently covered with Zosyn and Vanco. In view of extensive infection, the patient will likely need midline and outpatient antibiotic therapy in the form of Rocephin plus oral Flagyl if no resistant organism is found. Continue supportive care. MMODL / IJN: [id number] /
[2017-12-09 17:09] LABS: Glucose,Whole Blood 239 mg/dL (75-99)
[2017-12-09] MEDS: LACTATED RINGERS 1,000 ML IV SCH (18:13)
--- NOTE | 2017-12-09 18:45 | P.PN ---
Subjective Progress Note Date: 12/09/17 Progress note being dictated for Dr. Vargas. Interval history:27-year-old admitted for Bartholin's abscess. 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 Patient will undergo incision and drainage. 12/08/2017 T-max 100. Scheduled for I&D with EXCELSIOR CUTTER today. Maintained on IV antibiotics of Zosyn and vancomycin. Pain controlled, minimal drainage. Denies chest pain, palpitations or shortness of breath. 12/09/2017 status post I&D, postop day #1, tolerated procedure well .cultures pending. Maintained on IV antibiotics. T-max 100, currently afebrile. Packing removed, repacked as per [employer]CELSIOR CUTTER. Painful dressing change/packing removal this morning. Pain improved, currently controlled on motrin. Denies chest pain , palpitations or shortness of breath. Objective - Vital Signs Vital signs: Vital Signs Temp 97.9 F 12/09/17 07:00 Pulse 60 12/09/17 07:00 Resp 18 12/09/17 07:00 BP 119/79 12/09/17 07:00 Pulse Ox 99 12/09/17 07:00 Intake & Output 12/08/17 12/09/17 12/09/17 18:59 06:59 18:59 Intake Total 785 Output Total 200 Balance 585 Intake: IV 375 Intake, IV Titration 410 Amount Lactated Ringers 1,000 ml 160 @ 20 mls/hr IV .Q24H RADHA Rx#:[id number] Vancomycin 1,500 mg In 250 Sodium Chloride 0.9% 250 ml @ 125 mls/hr IVPB Q8H RADHA Rx#:[id number] Output: Urine 100 Estimated Blood Loss 100 Other: # Voids 2 2 # Bowel Movements 0 - Exam GENERAL: The patient is alert and oriented x3, not in any acute distress. HEENT: Pupils are round and equally reacting to light. EOMI. No scleral icterus. No conjunctival pallor. Normocephalic, atraumatic. CARDIOVASCULAR: S1 and S2 present. No murmurs, rubs, or gallops. PULMONARY: Chest is clear to auscultation, no wheezing or crackles. ABDOMEN: Soft, nontender, nondistended, normoactive bowel sounds. No palpable organomegaly. Left vulvar Wound repacked this morning per [employer]SIOR CUTTER. Decreasing erythema,edema.tender. MUSCULOSKELETAL: No joint swelling or deformity. EXTREMITIES: No cyanosis, clubbing, or pedal edema. NEUROLOGICAL: Gross neurological examination did not reveal any focal deficits. SKIN: No rashes. - Labs CBC & Chem 7: 12/09/17 08:20 12/09/17 08:20 Labs: Abnormal Lab Results - Last 24 Hours (Table) 12/08/17 12/08/17 12/09/17 Range/Units 17:19 20:32 07:30 RBC (3.80-5.40) m/uL Hgb (11.4-16.0) gm/dL MCV (80.0-100.0) fL Chloride (98-107) mmol/L Glucose (74-99) mg/dL POC Glucose (mg/dL) 320 H 304 H 231 H (75-99) mg/dL 12/09/17 12/09/17 12/09/17 Range/Units 08:20 08:20 11:47 RBC 3.56 L (3.80-5.40) m/uL Hgb 11.3 L (11.4-16.0) gm/dL MCV 101.4 H D (80.0-100.0) fL Chloride 108 H (98-107) mmol/L Glucose 199 H (74-99) mg/dL POC Glucose (mg/dL) 259 H (75-99) mg/dL Microbiology - Last 24 Hours (Table) 12/06/17 11:10 Gram Stain - Final Other - Other Wound Culture - Final 12/08/17 12:32 Gram Stain - Final Genital Genital Culture - Preliminary 12/04/17 19:04 Blood Culture - Preliminary Blood No Growth after 96 hours Assessment and Plan Assessment: -Left labial abscess: Status post Incision and drainage. Cultures currently gram-positive and gram-negative -Acute chlamydia infection -Type 2 diabetes mellitus -Recent bronchitis will not require any more prednisone. -Nicotine abuse: Counseling was provided -History of PCOD -Obesity, BMI is 27.5 Plan: Continue on current medication regime ,monitoring and symptomatic treatment. Maintain IV antibiotics. Potential midline catheter prior to discharge pending cultures. Close monitoring of blood sugars. The impression and plan of care has been dictated as directed. : I performed a history and examination of this patient, discussed the same with the dictator. I agree with the dictator's note ,documented as a scribe. Any additional findings or plans will be noted.
[2017-12-09 21:23] LABS: Glucose,Whole Blood 165 mg/dL (75-99)
[2017-12-09] MEDS: ONDANSETRON 4 MG/2 ML VIAL IVP PRN (22:44)
[2017-12-10] MEDS: PIPERACILLIN-TAZOBACTAM 3.375 GM in DEXTROSE/WATER 1 50ML.BAG IVPB SCH (05:07)
[2017-12-10] MEDS: VANCOMYCIN 1,500 MG in SODIUM CHLORIDE 0.9% 250 ML IVPB SCH ×2 (05:07→11:39)
[2017-12-10] MEDS: SODIUM CHLORIDE 0.9% 1,000 ML IV SCH ×2 (05:08→15:45)
[2017-12-10] MEDS: HYDROcodone/APAP 5-325MG 1 EACH TAB PO PRN ×4 (05:34→18:26)
[2017-12-10 07:09] LABS: Glucose,Whole Blood 128 mg/dL (75-99)
[2017-12-10] MEDS: INSULIN ASPART 100 UNIT/ML 1 ML 10 ML VIAL SQ SCH ×4 (08:59→21:10)
[2017-12-10] MEDS: metFORMIN 500 MG TAB PO SCH ×2 (09:00→20:47)
[2017-12-10] MEDS ORDERED: VANCOMYCIN TROUGH DUE 1 EACH MISC MISCELLANE ONE (11:00)
[2017-12-10] MEDS: IBUPROFEN 400 MG TAB PO PRN (11:39)
[2017-12-10 11:40] LABS: Calcium 8.8 mg/dL (8.4-10.2); Potassium 4.4 mmol/L (3.5-5.1)
[2017-12-10] MEDS ORDERED: cefTRIAXone 2,000 MG in SODIUM CHLORIDE 0.9% 100 ML IVPB STA ×2 (12:00→12:01)
--- NOTE | 2017-12-10 13:26 | PN ---
PROGRESS NOTE DATE OF SERVICE: 12/10/2017 REASON FOR FOLLOWUP: Left labial abscess. INTERVAL HISTORY: The patient is currently afebrile. She is breathing comfortably. Denies having any chest pain or shortness of breath or cough. No worsening pain into the left labial area especially at the time of dressing changes. PHYSICAL EXAMINATION: On examination, blood pressure 137/74 with a pulse of 105, temperature is 97.2. She is 93% on room air. General description is a middle-aged female lying in bed in no distress. RESPIRATORY SYSTEM: Unlabored breathing clear to auscultation anteriorly. HEART: S1, S2. Regular rate and rhythm. ABDOMEN: Soft, no tenderness. Left labial swelling and redness has decreased and no drainage was noticed today. LABS: BUN of 11, creatinine 1.05. The labial culture mostly from anaerobes both gram-positive and gram-negative, MRSA, no pseudomonas has been grown. DIAGNOSTIC IMPRESSION AND PLAN: Patient with left labial abscess status post drainage culture so far anaerobes. The patient antibiotic will be adjusted to Rocephin 2 grams daily in addition to the oral Flagyl. Local packing to be switched to Aquacel silver packing q.24 to 48 hours depending upon amount of drainage and close outpatient followup. Continue supportive care. MMODL / IJN: [id number] /
[2017-12-10 13:33] LABS: Glucose,Whole Blood 114 mg/dL (75-99)
[2017-12-10 14:19] LABS: Glucose,Whole Blood 141 mg/dL (75-99)
[2017-12-10] MEDS: LACTATED RINGERS 1,000 ML IV SCH (15:41)
[2017-12-10] MEDS: metroNIDAZOLE 500 MG TAB PO SCH ×2 (15:44→20:47)
[2017-12-10 17:00] LABS: Glucose,Whole Blood 124 mg/dL (75-99)
--- NOTE | 2017-12-10 20:23 | P.PN ---
Subjective Progress Note Date: 12/10/17 Progress note being dictated for Dr. Zheng Interval history:27-year-old admitted for Bartholin's abscess. 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 Patient will undergo incision and drainage. 12/08/2017 T-max 100. Scheduled for I&D with MANAGER PRODUCT today. Maintained on IV antibiotics of Zosyn and vancomycin. Pain controlled, minimal drainage. Denies chest pain, palpitations or shortness of breath. 12/09/2017 status post I&D, postop day #1, tolerated procedure well .cultures pending. Maintained on IV antibiotics. T-max 100, currently afebrile. Packing removed, repacked as per MANAGER PRODUCT. Painful dressing change/packing removal this morning. Pain improved, currently controlled on motrin. Denies chest pain , palpitations or shortness of breath. 12/10/17 midline catheter placed for IV antibiotics at discharge. Afebrile. Pain better controlled. Left labial redness and edema improving. Denies chest pain, palpitations or increased shortness of breath. Good diet intake, no nausea vomiting or diarrhea. Creatinine 1.05. Objective - Vital Signs Vital signs: Vital Signs Temp 98.0 F 12/10/17 15:00 Pulse 75 12/10/17 15:00 Resp 16 12/10/17 15:00 BP 125/77 12/10/17 15:00 Pulse Ox 93 L 12/10/17 15:00 Intake & Output 12/10/17 12/10/17 12/11/17 06:59 18:59 06:59 Intake Total 1000 Balance 1000 Weight 92 kg Intake: Oral 1000 Other: # Voids 2 3 - Exam GENERAL: The patient is alert and oriented x3, not in any acute distress. HEENT: Pupils are round and equally reacting to light. EOMI. No scleral icterus. No conjunctival pallor. Normocephalic, atraumatic. CARDIOVASCULAR: S1 and S2 present. No murmurs, rubs, or gallops. PULMONARY: Chest is clear to auscultation, no wheezing or crackles. ABDOMEN: Soft, nontender, nondistended, normoactive bowel sounds. No palpable organomegaly. Left labial area with decreasing erythema,edema, less tender. No drainage MUSCULOSKELETAL: No joint swelling or deformity. EXTREMITIES: No cyanosis, clubbing, or pedal edema. NEUROLOGICAL: Gross neurological examination did not reveal any focal deficits. SKIN: No rashes. - Labs CBC & Chem 7: 12/09/17 08:20 12/10/17 10:42 Labs: Abnormal Lab Results - Last 24 Hours (Table) 12/09/17 12/10/17 12/10/17 Range/Units 21:20 06:58 10:42 Chloride 108 H (98-107) mmol/L Creatinine 1.05 H (0.52-1.04) mg/dL Glucose 123 H (74-99) mg/dL POC Glucose (mg/dL) 165 H 128 H (75-99) mg/dL 12/10/17 12/10/17 12/10/17 Range/Units 13:10 14:10 16:59 Chloride (98-107) mmol/L Creatinine (0.52-1.04) mg/dL Glucose (74-99) mg/dL POC Glucose (mg/dL) 114 H 141 H 124 H (75-99) mg/dL Microbiology - Last 24 Hours (Table) 12/04/17 19:04 Blood Culture - Preliminary Blood No Growth after 120 hours Assessment and Plan Assessment: -Left labial abscess: Status post Incision and drainage. Cultures currently gram-positive and gram-negative anaerobes -Acute chlamydia infection -Type 2 diabetes mellitus -Recent bronchitis will not require any more prednisone. -Nicotine abuse: Counseling was provided -History of PCOD -Obesity, BMI is 27.5 Plan: Continue on current medication regime ,monitoring and symptomatic treatment. Maintain IV antibiotics. Packing/Wound Care as per MANAGER PRODUCT. Patient will need home care at discharge. Increase ambulation as tolerated. Further recommendations to follow. The impression and plan of care has been dictated as directed. : I performed a history and examination of this patient, discussed the same with the dictator. I agree with the dictator's note ,documented as a scribe. Any additional findings or plans will be noted.
[2017-12-10 21:25] LABS: Glucose,Whole Blood 183 mg/dL (75-99)
[2017-12-11] MEDS: HYDROcodone/APAP 5-325MG 1 EACH TAB PO PRN ×4 (02:08→22:03)
[2017-12-11] MEDS: SODIUM CHLORIDE 0.9% 1,000 ML IV SCH ×3 (02:09→20:29)
[2017-12-11] MEDS: ONDANSETRON 4 MG/2 ML VIAL IVP PRN ×2 (02:09→17:12)
[2017-12-11 07:25] LABS: Glucose,Whole Blood 140 mg/dL (75-99)
[2017-12-11] MEDS: metFORMIN 500 MG TAB PO SCH ×2 (08:26→20:27)
[2017-12-11] MEDS: metroNIDAZOLE 500 MG TAB PO SCH ×3 (08:26→20:27)
[2017-12-11] MEDS: INSULIN ASPART 100 UNIT/ML 1 ML 10 ML VIAL SQ SCH ×4 (08:26→22:00)
[2017-12-11 09:22] LABS: Anion Gap 9 mmol/L; Blood Urea Nitrogen 12 mg/dL (7-17); Calcium 9.2 mg/dL (8.4-10.2); Carbon Dioxide 24 mmol/L (22-30); Chloride 107 mmol/L (98-107); Glucose 135 mg/dL (74-99); Potassium 4.4 mmol/L (3.5-5.1); Sodium 140 mmol/L (137-145)
[2017-12-11] MEDS: cefTRIAXone 2,000 MG in SODIUM CHLORIDE 0.9% 100 ML IVPB SCH (09:57)
[2017-12-11 12:10] LABS: Glucose,Whole Blood 116 mg/dL (75-99)
[2017-12-11 17:02] LABS: Glucose,Whole Blood 132 mg/dL (75-99)
[2017-12-11] MEDS: HEPARIN SODIUM,PORCINE 5,000 UNIT/ML 1 ML VIAL SQ SCH (20:27)
[2017-12-11 21:41] LABS: Glucose,Whole Blood 137 mg/dL (75-99)
--- NOTE | 2017-12-11 22:57 | PN ---
PROGRESS NOTE DATE OF SERVICE: 12/11/2017 This 27-year-old woman was admitted with left labial abscess had multiple organisms grown from the culture. Final ID is pending. No chest pain. No palpitations. The patient is on broad-spectrum IV antibiotics. PHYSICAL EXAM: Alert and oriented x3. Pulse 77. Blood pressure 138/60, respirations 20, temperature 97.8, pulse ox 94% on room air. HEENT: Conjunctivae normal. Oral mucosa moist. Neck no jugular venous distention. No carotid bruit. No lymph node enlargement. Cardiovascular system: S1, S2. Respiratory: Breath sounds diminished in the bases. No rhonchi. No crackles. ABDOMEN: Soft, nontender. No mass palpable. Legs: No edema. No swelling. Central nervous system: No focal deficits. LAB STUDIES: At this time shows sodium 140, potassium 4.1, WBC 7.2, hemoglobin 11.3. ASSESSMENT: 1. Left labial abscess status post incision and drainage. 2. Acute chlamydia infection. 3. Diabetes mellitus type 2. 4. Recent bronchitis. 5. History of nicotine dependence. 6. History of polycystic ovarian disease. RECOMMENDATIONS AND DISCUSSION: Recommend to continue with current medications, continue with monitoring, symptomatic treatment, IV antibiotics. Await final ID of the organisms. Otherwise, continue the rest of the medications. I would also recommend DVT prophylaxis. Further recommendations to follow. MMODL / IJN: [id number] /
[2017-12-12 07:32] LABS: Glucose,Whole Blood 127 mg/dL (75-99)
[2017-12-12] MEDS: INSULIN ASPART 100 UNIT/ML 1 ML 10 ML VIAL SQ SCH ×4 (08:10→21:49)
[2017-12-12] MEDS: cefTRIAXone 2,000 MG in SODIUM CHLORIDE 0.9% 100 ML IVPB SCH (08:13)
[2017-12-12] MEDS: HYDROcodone/APAP 5-325MG 1 EACH TAB PO PRN ×2 (08:13→16:42)
[2017-12-12] MEDS: metFORMIN 500 MG TAB PO SCH ×2 (08:14→20:27)
[2017-12-12] MEDS: metroNIDAZOLE 500 MG TAB PO SCH ×3 (08:14→20:28)
[2017-12-12] MEDS: LORATADINE 10 MG TAB PO SCH (08:14)
[2017-12-12] MEDS: HEPARIN SODIUM,PORCINE 5,000 UNIT/ML 1 ML VIAL SQ SCH ×2 (08:14→20:28)
[2017-12-12] MEDS: SODIUM CHLORIDE 0.9% 1,000 ML IV SCH ×2 (08:19→16:43)
[2017-12-12 09:50] LABS: Potassium 4.4 mmol/L (3.5-5.1)
[2017-12-12 11:56] LABS: Glucose,Whole Blood 108 mg/dL (75-99)
[2017-12-12] MEDS: ONDANSETRON 4 MG/2 ML VIAL IVP PRN (16:45)
[2017-12-12 17:41] LABS: Glucose,Whole Blood 145 mg/dL (75-99)
--- NOTE | 2017-12-12 20:23 | PN ---
PROGRESS NOTE . DATE OF SERVICE: 12/12/2017 This 27-year-old woman was admitted with left labial abscess, had incision and drainage. Multiple organisms grown from the cultures. Final ID is pending. No chest pain. No palpitations. No fever. EXAM: Alert and oriented x2. Pulse 71, blood pressure 126/83, respirations 18, temperature 98.4, pulse ox 94% on room air. HEENT was conjunctivae normal. Neck: No jugular venous distention. Cardiovascular: S1, S2. Respiratory: Breath sounds diminished in the bases. No rhonchi. No crackles. Abdomen soft nontender. Legs are no edema. No swelling. Central nervous system: No focal deficits. LABS: Sodium is 140, potassium 4.4, glucose 145. ASSESSMENT: 1. Left labial abscess status post incision and drainage. 2. Acute chlamydia infection. 3. Diabetes mellitus type 2. 4. History of recent bronchitis. 5. History of nicotine dependence. 6. History of polycystic ovarian disease. RECOMMENDATIONS AND DISCUSSION: Recommend to continue current medications, continue with monitoring and symptomatic treatment. Otherwise, at this time, I would recommend continue the antibiotics. Await the final ID of the organism. Repeat labs will be ordered for tomorrow. Closely follow with Infectious Disease and surgery. Further recommendations to follow. MMODL / IJN: [id number] /
[2017-12-12 21:11] LABS: Glucose,Whole Blood 148 mg/dL (75-99)
--- NOTE | 2017-12-13 00:46 | PN ---
PROGRESS NOTE DATE OF SERVICE: 12/12/2017. REASON FOR FOLLOWUP: Left labial and abscess. INTERVAL HISTORY: The patient is currently afebrile. She is breathing comfortably. Pain to the left hip area has improved. Denies any chest pain, shortness of breath, abdominal pain or diarrhea. EXAMINATION: Blood pressure 126/83 with a pulse of 71, temperature 98.5. She is 94% on room air. GENERAL DESCRIPTION: A middle aged female, lying in bed in no distress. RESPIRATORY SYSTEM: Unlabored breathing. Clear to auscultation anteriorly. HEART: S1, S2. Regular rate and rhythm. GENITALIA: Left labial swelling decreased. No drainage. LABS: BUN of 12, creatinine 1.02. DIAGNOSTIC IMPRESSION AND PLAN: Patient with left leg abscess status post drainage, positive for anaerobic gram- positive and negative. The patient is currently covered with Rocephin and Flagyl to continue for another 7 to 10 days with close outpatient followup. Continue supportive care. MMODL / IJN: [id number] /
[2017-12-13] MEDS: SODIUM CHLORIDE 0.9% 1,000 ML IV SCH (03:49)
[2017-12-13] MEDS: HYDROcodone/APAP 5-325MG 1 EACH TAB PO PRN (04:27)
[2017-12-13] MEDS: ONDANSETRON 4 MG/2 ML VIAL IVP PRN (04:28)
[2017-12-13 07:27] LABS: Glucose,Whole Blood 98 mg/dL (75-99)
[2017-12-13 07:51] VITALS: BP 114/63; PULSE 70; RESP 16; TEMP 97.9
[2017-12-13] MEDS: INSULIN ASPART 100 UNIT/ML 1 ML 10 ML VIAL SQ SCH ×2 (08:16→12:04)
[2017-12-13] MEDS: metFORMIN 500 MG TAB PO SCH (08:57)
[2017-12-13] MEDS: HEPARIN SODIUM,PORCINE 5,000 UNIT/ML 1 ML VIAL SQ SCH (08:57)
[2017-12-13] MEDS: metroNIDAZOLE 500 MG TAB PO SCH (08:57)
[2017-12-13] MEDS: cefTRIAXone 2,000 MG in SODIUM CHLORIDE 0.9% 100 ML IVPB SCH (08:57)
[2017-12-13] MEDS: LORATADINE 10 MG TAB PO SCH (08:57)
[2017-12-13] MEDS ORDERED: HYDROcodone/APAP 5-325MG 1 EACH TAB PO PRN (10:41)
[2017-12-13 11:20] LABS: Glucose,Whole Blood 117 mg/dL (75-99)
[2017-12-13 12:05] LABS: Basophils % (A) 0 %; Eosinophils # (A) 0.3 k/uL (0-0.7); Eosinophils % (A) 4 %; HCT 36.8 % (34.0-46.0); HGB 12.4 gm/dL (11.4-16.0); Lymphocytes # (A) 1.2 k/uL (1.0-4.8); Lymphocytes % (A) 13 %; MCH 31.6 pg (25.0-35.0); MCHC 33.7 g/dL (31.0-37.0); Mean Platelet Volume 6.6; Monocytes # (A) 0.2 k/uL (0-1.0); Monocytes % (A) 3 %; Neutrophils # (A) 7.2 k/uL (1.3-7.7); Neutrophils % (A) 79 %; Platelet Count 379 k/uL (150-450); RBC 3.93 m/uL (3.80-5.40); RDW 12.2 % (11.5-15.5); WBC 9.2 k/uL (3.8-10.6)
[2017-12-13 12:20] LABS: MCV 93.7 fL (80.0-100.0)
[2017-12-13 12:23] LABS: Calcium 9.4 mg/dL (8.4-10.2); Potassium 4.6 mmol/L (3.5-5.1)
--- NOTE | 2017-12-13 15:35 | PN ---
PROGRESS NOTE DATE OF SERVICE: 12/13/2017 REASON FOR FOLLOWUP: Left labial abscess. INTERVAL HISTORY: The patient is currently afebrile. She is feeling better. Breathing comfortably. Pain to the left labial area has decreased in intensity. Denies having any chest pain, shortness of breath or cough and no diarrhea. PHYSICAL EXAMINATION: Blood pressure 114/63 with a pulse of 70, temperature 97.9, she is 95% on room air. General description is a young female, lying in bed in no distress. RESPIRATORY SYSTEM: Unlabored breathing, clear to auscultation anteriorly. HEART: S1, S2. Regular rate and rhythm. ABDOMEN: Soft, no tenderness. EXTREMITIES: No edema of the feet. LABS: Hemoglobin 12.4, white count 9.2 with a BUN of 12, creatinine 1.04. DIAGNOSTIC IMPRESSION AND PLAN: Patient left labial abscess, status post extensive debridement. PLAN: At this time is to finish therapy with IV Rocephin and Flagyl for at least 10-12 days with adequate packing of the wound. Will follow up in the office in 1 week. Continue supportive care. Scripts were written for the patient. MMODL / IJN: [id number] /
--- NOTE | 2017-12-13 17:11 | DS ---
DISCHARGE SUMMARY DATE OF SERVICE: 12/13/2017. FINAL DIAGNOSES: 1. Left labial abscess status post incision and drainage with polymicrobial jose. 2. Acute chlamydia infection. 3. Diabetes mellitus type 2. 4. History of recent bronchitis. 5. History of nicotine dependence. 6. History of polycystic ovarian disease. DISCHARGE DISPOSITION: The patient is being discharged in stable condition with guarded prognosis. HISTORY OF PRESENT ILLNESS: This 27-year-old woman with a past medical history of multiple medical problems was admitted with left labial abscess, incision and drainage was done. Patient treated with the Flagyl and Rocephin. Continued antibiotics recommended by Dr. Abebe. PHYSICAL EXAMINATION: On exam, vital signs are stable. Cardiovascular: S1, S2. Abdomen soft. Central nervous system: No focal deficits. DISCHARGE ADVICE AND MEDICATIONS: 1. Discharge diet is cardiac diet. 2. Activity limited until followup. 3. Follow up with Dr. Harriet Lemus in 2-3 days. 4. Follow up with Dr. Abebe and Dr. Boogie as advised. MEDICATIONS: 1. Claritin 10 mg p.o. daily. 2. Metformin 1000 mg p.o. b.i.d. 3. Prednisone 40 mg p.o. daily. 4. Rocephin 2 g IV daily as ID. 5. Hydrocodone 5 mg p.o. q.8h p.r.n. 6. Motrin 400 mg q.6h p.r.n. 7. Flagyl 500 mg p.o. t.i.d. MMANTONELLAL / JAIN: [id number] /
--- NOTE | 2017-12-14 12:42 | CDI ---
Last Revision, February 2017 Documentation Clarification Form Date: 12/14/17 From: Nyla Jean Marie Aga Gracie, Grid Molder Hours-8:30 am & 5 pm Susan Admit Date: 12/04/2017 8:17:00 PM Patient Name: Zahira Thao Visit Number: [id number] Discharge Date: 12/13/17 ATTENTION: The Clinical Documentation Specialists (CDI) and [facility] Coding Staff appreciate your assistance in clarifying documentation. Please respond to the clarification below the line at the bottom and electronically sign. The CDI & [facility] Coding staff will review the response and follow-up if needed. Please note: Queries are made part of the Legal Health Record. If you have any questions, please contact the author of this message via ITS. Abby Trimble MD Per ED and H&P, patient presents the day after incision and drainage of labial abscess with sepsis. History/Risk Factors: WBC/Left Shift: 14.3/12.9 Lactic acid: 2.0 Blood cultures: no growth Vitals signs on admission: T-100.0, P-99, R-16, BP-106/59,o2 sat-96 Other Clinical Indicators: Treatment: IV Vanco, IV Zosyn, In your professional opinion, please clarify the sepsis: Sepsis due to previous incision and drainage (organism causing sepsis) Sepsis due to labial abscess (organism causing sepsis) Sepsis ruled out Severe Sepsis (organism causing sepsis) Septic Shock Other, please specify Unable to determine Please continue to document in your progress notes and discharge summary in order to capture severity of illness and risk of mortality. Include clinical findings that support your diagnosis. Unable to determine MTDD
== END 2017-12-13 16:13 | disposition home health service (06) | DRG 854 ==
LOC: EC 18:13 → 4MS4W 20:17
PROVIDERS: ADMIT Hospitalist; ATTEND Hospitalist
PROC: 0U9M0ZZ Drainage of Vulva, Open Approach (ICD-10-PCS; principal; 2017-12-08 12:30)
DX: A41.9 Sepsis, unspecified organism (principal); N75.1 Abscess of Bartholin's gland; N76.4 Abscess of vulva; E11.65 Type 2 diabetes mellitus with hyperglycemia; E28.2 Polycystic ovarian syndrome; Z23 Encounter for immunization; A74.9 Chlamydial infection, unspecified; N76.2 Acute vulvitis; E78.5 Hyperlipidemia, unspecified; J40 Bronchitis, not specified as acute or chronic; I10 Essential (primary) hypertension; E78.00 Pure hypercholesterolemia, unspecified; F31.9 Bipolar disorder, unspecified; F17.210 Nicotine dependence, cigarettes, uncomplicated; Z71.6 Tobacco abuse counseling; F10.21 Alcohol dependence, in remission; F19.21 Other psychoactive substance dependence, in remission; E66.9 Obesity, unspecified; Z68.27 Body mass index [BMI] 27.0-27.9, adult; Z71.3 Dietary counseling and surveillance; Z79.84 Long term (current) use of oral hypoglycemic drugs
CPT/HCPCS: 36415; 36569; 74177; 80048; 80053; 80202; 81001; 81025; 83036; 83605; 85025; 87040; 87070; 87075; 87205; 87491; 87591; 90686; 96365; 96366; 99284

== ENCOUNTER 2020-04-16 15:06 | Emergency (ER) | payer OTHER ==
[2020-04-16 15:16] VITALS: TEMP 98.3
--- NOTE | 2020-04-16 15:42 | ED ---
ENT HPI - General Chief complaint: ENT Stated complaint: abscess in throat Time Seen by Provider: 04/16/20 15:17 Source: patient Mode of arrival: ambulatory Limitations: no limitations - History of Present Illness Initial comments: Is a 30-year-old female who presents emergency department for sore throat. The patient states that it started approximately 9 days ago. [facility] after she developed the sore throat. She states that she was placed on amoxicillin at that time. For 5 days later she went to her primary doctor who switched her to Augmentin. She states that she's been taking this every since. She states that they sore throat progressed and she has developed worsening swelling on the left side. She's got a little bit of difficulty with swallowing. She went back to her primary doctor today who ordered a stat computed tomography scan which showed a left-sided peritonsillar abscess that was 3 cm x 3 cm. She was sent emergency department for evaluation. The patient states that she has not had any objective fever at home however has been feeling generally fatigued and not right. She denies any cough or shortness of breath. He denies any other acute complaints. Of note the patient does have a history of sepsis from a Bartholin's cyst in the past where she had had it surgically excised. She spent a prolonged period of time in the hospital at that time. - Related Data Home Medications Medication Instructions Recorded Confirmed metFORMIN HCL 1,000 mg PO BID 05/16/16 04/16/20 Loratadine [Claritin] 10 mg PO DAILY 12/03/17 04/16/20 Amoxicillin/Potassium Clav 1 tab PO BID 04/16/20 04/16/20 [Augmentin 875-125 Tablet] Atorvastatin [Lipitor] 10 mg PO DAILY 04/16/20 04/16/20 Pioglitazone [Actos] 15 mg PO DAILY 04/16/20 04/16/20 Allergies Allergy/AdvReac Type Severity Reaction Status Date / Time No Known Allergies Allergy Verified 04/16/20 17:38 Review of Systems ROS Statement: Those systems with pertinent positive or pertinent negative responses have been documented in the HPI. ROS Other: All systems not noted in ROS Statement are negative. Past Medical History Past Medical History: Diabetes Mellitus, Hyperlipidemia, Hypertension Additional Past Medical History / Comment(s): recovering addict and alcoholic, polycystic ovarian syndrome History of Any Multi-Drug Resistant Organisms: C-DIFF Date of last positivie culture/infection: 2019 Past Surgical History: No Surgical Hx Reported Additional Past Surgical History / Comment(s): barthonian cycst Past Psychological History: Bipolar Smoking Status: Current every day smoker Past Alcohol Use History: Occasional Past Drug Use History: Marijuana General Exam - General Exam Comments Initial Comments: Constitutional: [Awake alert] [Appears comfortable] Head: [Normocephalic atraumatic] Eyes: [no conjunctival injection] [No scleral icterus] [EOMI] ENT: The patient does have some peritonsillar swelling to left side with some associated erythema. She has a little bit of exudate to the left tonsillar area. No rhinorrhea present Neck: [No JVD] [Supple], No lymphadenopathy Heart: [Regular rate rhythm] [normal S1-S2] [no murmurs] Lungs: [Clear to auscultation bilaterally] [No wheezing] [No rales] Abdomen: [Soft] [nondistended] [nontender] Extremities: [Non edematous] [DP pulses intact] [Radial pulses intact] Neuro: [A&Ox3] [No focal neurologic deficits] Psych: [Appropriate mood and affect] Limitations: no limitations Course Vital Signs 04/16/20 04/16/20 15:12 18:57 Temperature 98.3 F Pulse Rate 110 H 66 Respiratory 18 16 Rate Blood Pressure 151/93 124/81 O2 Sat by Pulse 98 100 Oximetry Procedures - Incision & Drainage Consent Obtained: verbal consent Indication: Peritonsillar abscess Site: oral Anesthetic Used: lidocaine 1% Amount (mLs): 2 Needle Aspiration Performed?: Yes (18g spinal needle with 4cc purulent drainage) Irrigation Performed?: No I&D Drainage Obtained: Pus, Blood Culture Obtained?: Yes Complications: pain, bleeding Patient Tolerated Procedure: well Medical Decision Making - Medical Decision Making This 30-year-old female who presents emergency department for peritonsillar abscess. The patient was little bit tachycardic on arrival however she had blood work performed that did not reveal any acute abdomen on these. The patient had the abscess aspirated at bedside with 4 mL of pus that came out. The patient tolerated this well. She was given 2 L of fluids and a dose of IV Unasyn and Decadron. She is to follow-up with Dr. Vincent tomorrow in his office and he stated that he wouldn't drain again if the patient required at. The patient was comfortable with this plan is going to continue with her Augmentin at home. All questions were answered. - Lab Data Result diagrams: 04/16/20 16:03 04/16/20 16:03 Lab Results 04/16/20 04/16/20 04/16/20 Range/Units 16:03 16:03 16:03 WBC 9.0 (3.8-10.6) k/uL RBC 4.99 (3.80-5.40) m/uL Hgb 16.9 H (11.4-16.0) gm/dL Hct 46.9 H (34.0-46.0) % MCV 94.0 (80.0-100.0) fL MCH 33.8 (25.0-35.0) pg MCHC 36.0 (31.0-37.0) g/dL RDW 11.1 L (11.5-15.5) % Plt Count 290 (150-450) k/uL MPV 7.3 Neutrophils % 72 % Lymphocytes % 17 % Monocytes % 5 % Eosinophils % 3 % Basophils % 1 % Neutrophils # 6.5 (1.3-7.7) k/uL Lymphocytes # 1.5 (1.0-4.8) k/uL Monocytes # 0.4 (0-1.0) k/uL Eosinophils # 0.3 (0-0.7) k/uL Basophils # 0.1 (0-0.2) k/uL PT 10.8 (9.0-12.0) sec INR 1.0 (<1.2) APTT 22.2 (22.0-30.0) sec Sodium 136 L (137-145) mmol/L Potassium 4.1 (3.5-5.1) mmol/L Chloride 99 (98-107) mmol/L Carbon Dioxide 24 (22-30) mmol/L Anion Gap 13 mmol/L BUN 13 (7-17) mg/dL Creatinine 0.73 (0.52-1.04) mg/dL Est GFR (CKD-EPI)AfAm >90 (>60 ml/min/1.73 sqM) Est GFR (CKD-EPI)NonAf >90 (>60 ml/min/1.73 sqM) Glucose 289 H (74-99) mg/dL Plasma Lactic Acid Nik[place]j (0.7-2.0) mmol/L Calcium 10.2 (8.4-10.2) mg/dL Total Bilirubin 0.5 (0.2-1.3) mg/dL AST 50 H (14-36) U/L ALT 65 H (4-34) U/L Alkaline Phosphatase 76 (38-126) U/L Total Protein 8.1 (6.3-8.2) g/dL Albumin 4.8 (3.5-5.0) g/dL 04/16/20 Range/Units 16:03 WBC (3.8-10.6) k/uL RBC (3.80-5.40) m/uL Hgb (11.4-16.0) gm/dL Hct (34.0-46.0) % MCV (80.0-100.0) fL MCH (25.0-35.0) pg MCHC (31.0-37.0) g/dL RDW (11.5-15.5) % Plt Count (150-450) k/uL MPV Neutrophils % % Lymphocytes % % Monocytes % % Eosinophils % % Basophils % % Neutrophils # (1.3-7.7) k/uL Lymphocytes # (1.0-4.8) k/uL Monocytes # (0-1.0) k/uL Eosinophils # (0-0.7) k/uL Basophils # (0-0.2) k/uL PT (9.0-12.0) sec INR (<1.2) APTT (22.0-30.0) sec Sodium (137-145) mmol/L Potassium (3.5-5.1) mmol/L Chloride (98-107) mmol/L Carbon Dioxide (22-30) mmol/L Anion Gap mmol/L BUN (7-17) mg/dL Creatinine (0.52-1.04) mg/dL Est GFR (CKD-EPI)AfAm (>60 ml/min/1.73 sqM) Est GFR (CKD-EPI)NonAf (>60 ml/min/1.73 sqM) Glucose (74-99) mg/dL Plasma Lactic Acid Nikunj 1.6 (0.7-2.0) mmol/L Calcium (8.4-10.2) mg/dL Total Bilirubin (0.2-1.3) mg/dL AST (14-36) U/L ALT (4-34) U/L Alkaline Phosphatase (38-126) U/L Total Protein (6.3-8.2) g/dL Albumin (3.5-5.0) g/dL Disposition Clinical Impression: Peritonsillar abscess Disposition: HOME SELF-CARE Condition: Stable Instructions (If sedation given, give patient instructions): Abscess Incision and Drainage (ED) Is patient prescribed a controlled substance at d/c from ED?: No Referrals: Harriet Lemus MD [Primary Care Provider] - 1-2 days Sebas Garcia DO [Doctor of Osteopathic Medicine] - 1-2 days
[2020-04-16] MEDS ORDERED: BENZOCAINE SPRAY 1 CAN ONE (15:46)
[2020-04-16] MEDS: SODIUM CHLORIDE 0.9% 500 ML 500 ML IV SCH ×2 (16:07→16:18)
[2020-04-16 16:15] LABS: Basophils # (A) 0.1 k/uL (0-0.2); Basophils % (A) 1 %; Eosinophils # (A) 0.3 k/uL (0-0.7); Eosinophils % (A) 3 %; HCT 46.9 % (34.0-46.0); HGB 16.9 gm/dL (11.4-16.0); Lymphocytes # (A) 1.5 k/uL (1.0-4.8); Lymphocytes % (A) 17 %; MCH 33.8 pg (25.0-35.0); Mean Platelet Volume 7.3; Monocytes # (A) 0.4 k/uL (0-1.0); Monocytes % (A) 5 %; Neutrophils # (A) 6.5 k/uL (1.3-7.7); Neutrophils % (A) 72 %; Platelet Count 290 k/uL (150-450); RBC 4.99 m/uL (3.80-5.40); RDW 11.1 % (11.5-15.5)
[2020-04-16 16:22] LABS: Partial Thromboplastin Time 22.2 sec (22.0-30.0); Prothrombin Time 10.8 sec (9.0-12.0)
[2020-04-16 16:25] LABS: ALT 65 U/L (4-34); AST 50 U/L (14-36); African American GFR (CKD) >90 (>60 ml/min/1.73 sqM); Albumin 4.8 g/dL (3.5-5.0); Alkaline Phosphatase 76 U/L (38-126); Anion Gap 13 mmol/L; Blood Urea Nitrogen 13 mg/dL (7-17); Calcium 10.2 mg/dL (8.4-10.2); Carbon Dioxide 24 mmol/L (22-30); Chloride 99 mmol/L (98-107); Glucose 289 mg/dL (74-99); Non-African American GFR(CKD) >90 (>60 ml/min/1.73 sqM); Potassium 4.1 mmol/L (3.5-5.1); Sodium 136 mmol/L (137-145); Total Bilirubin 0.5 mg/dL (0.2-1.3); Total Protein 8.1 g/dL (6.3-8.2)
[2020-04-16] MEDS ORDERED: MORPHINE SULFATE 4 MG/ML SYRINGE IVP STA (16:25)
[2020-04-16] MEDS ORDERED: DEXAMETHASONE SOD PHOSPHATE 10 MG/ML 1 ML VIAL IV STA (17:58)
[2020-04-16] MEDS ORDERED: SODIUM CHLORIDE 0.9% 1,000 ML IV ONE (17:58)
[2020-04-16] MEDS ORDERED: AMPICILLIN-SULBACTAM 1.5 GM in SODIUM CHLORIDE 0.9% 50 ML IVPB STA (17:58)
[2020-04-16 18:58] VITALS: BP 124/81; PULSE 66; RESP 16
== END 2020-04-16 18:57 | disposition home or self-care (01) ==
LOC: EC 15:06
DX: J36 Peritonsillar abscess (principal); F31.9 Bipolar disorder, unspecified; E11.9 Type 2 diabetes mellitus without complications; E78.5 Hyperlipidemia, unspecified; I10 Essential (primary) hypertension; F17.200 Nicotine dependence, unspecified, uncomplicated; Z79.84 Long term (current) use of oral hypoglycemic drugs; Z79.899 Other long term (current) drug therapy
CPT/HCPCS: 36415; 80053; 83605; 85025; 85610; 85730; 87040; 87070; 87205; 99283; 96365; 96375 ×2; 96361; 42700; J2270; J1100; J0295

== ENCOUNTER → 2020-04-16 | Outpatient (CLI) | payer OTHER ==
[2020-04-16 11:41] LABS: African American GFR (CKD) >90 (>60 ml/min/1.73 sqM); Blood Urea Nitrogen 12 mg/dL (7-17); Non-African American GFR(CKD) >90 (>60 ml/min/1.73 sqM)
--- NOTE | 2020-04-16 12:28 | CT ---
EXAMINATION TYPE: CT soft tissue neck w con DATE OF EXAM: 04/16/2020 12:09 PM COMPARISON: None HISTORY: acute tonsillitis unresponsive to antibiotic treatment CT DLP: 609 mGycm Automated exposure control for dose reduction was used. CONTRAST: CT scan of the neck is performed following with IV Contrast, patient injected with 100 mL of Isovue 3 00. Axial images are obtained, coronal and sagittal reformatted images are reviewed. FINDINGS: The palatine tonsil on the left shows abnormal enlargement, multilocular low-attenuation wi th peripheral enhancement consistent with abscess measuring approximately 3 cm in AP dimension by 3 c m in transverse dimension by 3.7 cm in cephalad to caudal dimension, there is local mass effect. Airway: Mass effect from the tonsillar abscess on the left causes some compromise of the airway. Parotid/submandibular glands: No gross abnormality seen. Carotid/Vascular Structures: Normal Osseous Structures: Within normal limits Other: Some reactive adenopathy present adjacent to the carotid bifurcation on the left IMPRESSION: Peritonsillar abscess on the left, patient was counseled personally to be seen in the [facility]
== END | disposition home or self-care (01) ==
LOC: RADCTMAIN 10:59
PROVIDERS: ATTEND Nurse Practitioner Family
DX: J36 Peritonsillar abscess (principal)
CPT/HCPCS: 82565; 84520; 70491; 36415; Q9967

== ENCOUNTER 2020-04-18 15:56 | Emergency (ER) | payer OTHER ==
[2020-04-18 16:12] VITALS: RESP 18; TEMP 98.3
[2020-04-18] MEDS ORDERED: BENZOCAINE SPRAY 1 CAN TOPICAL STA (16:49)
[2020-04-18] MEDS ORDERED: LIDOCAINE 1% INJ 10MG/ML (20 ML MDV) SQ ONE (16:49)
--- NOTE | 2020-04-18 16:56 | ED ---
General Adult HPI - General Chief complaint: ENT Stated complaint: lump in throat Time Seen by Provider: 04/18/20 16:43 Source: patient, RN notes reviewed, old records reviewed Mode of arrival: ambulatory Limitations: no limitations - History of Present Illness Initial comments: 30-year-old female presenting for evaluation of sore throat. Patient was d iagnosed with peritonsillar abscess on the left, this was drained in the emergency department 2 days ago. She's had some persistent swelling, she was evaluated by her primary care physician who felt that she should present to the emergency department for possible incision and drainage. She denies fever at home but states she has felt chilled. She has a history of type 2 diabetes and states her sugars have been somewhat elevated. She is able to swallow although it is somewhat painful. She was not placed on steroids secondary to her diabetes. She is currently on Augmentin. - Related Data Home Medications Medication Instructions Recorded Confirmed metFORMIN HCL 1,000 mg PO BID 05/16/16 04/16/20 Loratadine [Claritin] 10 mg PO DAILY 12/03/17 04/16/20 Amoxicillin/Potassium Clav 1 tab PO BID 04/16/20 04/16/20 [Augmentin 875-125 Tablet] Atorvastatin [Lipitor] 10 mg PO DAILY 04/16/20 04/16/20 Pioglitazone [Actos] 15 mg PO DAILY 04/16/20 04/16/20 Previous Rx's Medication Instructions Recorded Clindamycin [Cleocin] 300 mg PO Q6H 10 Days #40 cap 04/18/20 Allergies Allergy/AdvReac Type Severity Reaction Status Date / Time No Known Allergies Allergy Verified 04/18/20 16:12 Review of Systems ROS Statement: Those systems with pertinent positive or pertinent negative responses have been documented in the HPI. ROS Other: All systems not noted in ROS Statement are negative. Past Medical History Past Medical History: Diabetes Mellitus, Hyperlipidemia, Hypertension Additional Past Medical History / Comment(s): recovering addict and alcoholic, polycystic ovarian syndrome History of Any Multi-Drug Resistant Organisms: C-DIFF Date of last positivie culture/infection: 2018 Past Surgical History: No Surgical Hx Reported Additional Past Surgical History / Comment(s): barthonian cycst Past Psychological History: Bipolar Smoking Status: Current every day smoker Past Alcohol Use History: Occasional Past Drug Use History: Marijuana General Exam Limitations: no limitations General appearance: alert, in no apparent distress Head exam: Present: atraumatic, normocephalic Eye exam: Present: normal appearance, PERRL ENT exam: Present: other (Peritonsillar cellulitis, swelling, central fluctuance in the left tonsillar pillar and superior to the tonsil.) Neck exam: Present: normal inspection. Absent: tenderness, meningismus Respiratory exam: Present: normal lung sounds bilaterally. Absent: respiratory distress, wheezes Cardiovascular Exam: Present: regular rate, normal rhythm GI/Abdominal exam: Present: soft. Absent: distended, tenderness, guarding Extremities exam: Present: normal inspection, normal capillary refill. Absent: pedal edema Neurological exam: Present: alert, oriented X3, CN II-XII intact. Absent: motor sensory deficit Psychiatric exam: Present: normal affect, normal mood Course Vital Signs 04/18/20 16:10 Temperature 98.3 F Pulse Rate 99 Respiratory 18 Rate Blood Pressure 124/87 O2 Sat by Pulse 99 Oximetry Procedures - Incision & Drainage Consent Obtained: written consent Site: oral Size (cm): 3 Anesthetic Used: lidocaine 1% Amount (mLs): 2 Sterile Field Used?: No Needle Aspiration Performed?: Yes Irrigation Performed?: No I&D Drainage Obtained: Pus Culture Obtained?: No Patient Tolerated Procedure: well Medical Decision Making - Medical Decision Making 30-year-old female presenting with recurrent left-sided peritonsillar abscess. She had aspiration performed 2 days ago and has been on Augmentin. She was referred to ENT but was unable to make this appointment. She is returning at the request of her primary care physician for possible recurrent abscess and need for drainage. I did develop the patient, she does have a large peritonsillar abscess on the left. She is nontoxic, afebrile. Consent was obtained and aspiration with a spinal needle with approximately 1 cm reveal was used after injecting 2 mL of lidocaine. 7 mL of purulent drainage was obtained. Patient has normal white blood cell count, she is nontoxic. Normal white lit es, negative lactic acid. I did discuss case with Dr. Vincent who will be happy to see the patient the office, we did discuss antibiotics and it was decided that the patient be continued on Augmentin and clindamycin be added. - Lab Data Result diagrams: 04/18/20 17:13 04/18/20 17:13 Lab Results 04/18/20 04/18/20 04/18/20 Range/Units 17:13 17:13 17:13 WBC 7.0 (3.8-10.6) k/uL RBC 4.94 (3.80-5.40) m/uL Hgb 16.3 H (11.4-16.0) gm/dL Hct 46.3 H (34.0-46.0) % MCV 93.8 (80.0-100.0) fL MCH 33.0 (25.0-35.0) pg MCHC 35.1 (31.0-37.0) g/dL RDW 11.1 L (11.5-15.5) % Plt Count 278 (150-450) k/uL MPV 7.1 Neutrophils % 59 % Lymphocytes % 29 % Monocytes % 4 % Eosinophils % 4 % Basophils % 1 % Neutrophils # 4.1 (1.3-7.7) k/uL Lymphocytes # 2.0 (1.0-4.8) k/uL Monocytes # 0.3 (0-1.0) k/uL Eosinophils # 0.3 (0-0.7) k/uL Basophils # 0.1 (0-0.2) k/uL Sodium 137 (137-145) mmol/L Potassium 3.9 (3.5-5.1) mmol/L Chloride 103 (98-107) mmol/L Carbon Dioxide 27 (22-30) mmol/L Anion Gap 7 mmol/L BUN 12 (7-17) mg/dL Creatinine 0.68 (0.52-1.04) mg/dL Est GFR (CKD-EPI)AfAm >90 (>60 ml/min/1.73 sqM) Est GFR (CKD-EPI)NonAf >90 (>60 ml/min/1.73 sqM) Glucose 215 H (74-99) mg/dL Plasma Lactic Acid Nikunj 1.2 (0.7-2.0) mmol/L Calcium 9.5 (8.4-10.2) mg/dL Total Bilirubin 0.6 (0.2-1.3) mg/dL AST 47 H (14-36) U/L ALT 64 H (4-34) U/L Alkaline Phosphatase 69 (38-126) U/L Total Protein 7.9 (6.3-8.2) g/dL Albumin 4.7 (3.5-5.0) g/dL Disposition Clinical Impression: Peritonsillar abscess Disposition: HOME SELF-CARE Condition: Good Instructions (If sedation given, give patient instructions): Abscess Incision and Drainage (ED), Peritonsillar Abscess (ED) Prescriptions: Clindamycin [Cleocin] 300 mg PO Q6H 10 Days #40 cap Is patient prescribed a controlled substance at d/c from ED?: No Referrals: Harriet Lemus MD [Primary Care Provider] - 1-2 days Sebas Garcia DO [Doctor of Osteopathic Medicine] - 1-2 days Time of Disposition: 18:07
[2020-04-18 17:27] LABS: Basophils # (A) 0.1 k/uL (0-0.2); Basophils % (A) 1 %; Eosinophils # (A) 0.3 k/uL (0-0.7); Eosinophils % (A) 4 %; HCT 46.3 % (34.0-46.0); HGB 16.3 gm/dL (11.4-16.0); Lymphocytes % (A) 29 %; MCHC 35.1 g/dL (31.0-37.0); MCV 93.8 fL (80.0-100.0); Mean Platelet Volume 7.1; Monocytes # (A) 0.3 k/uL (0-1.0); Monocytes % (A) 4 %; Neutrophils # (A) 4.1 k/uL (1.3-7.7); Neutrophils % (A) 59 %; Platelet Count 278 k/uL (150-450); RBC 4.94 m/uL (3.80-5.40); RDW 11.1 % (11.5-15.5)
[2020-04-18 17:37] LABS: Potassium 3.9 mmol/L (3.5-5.1)
[2020-04-18 17:38] LABS: ALT 64 U/L (4-34); AST 47 U/L (14-36); African American GFR (CKD) >90 (>60 ml/min/1.73 sqM); Albumin 4.7 g/dL (3.5-5.0); Alkaline Phosphatase 69 U/L (38-126); Anion Gap 7 mmol/L; Blood Urea Nitrogen 12 mg/dL (7-17); Calcium 9.5 mg/dL (8.4-10.2); Carbon Dioxide 27 mmol/L (22-30); Chloride 103 mmol/L (98-107); Glucose 215 mg/dL (74-99); Non-African American GFR(CKD) >90 (>60 ml/min/1.73 sqM); Sodium 137 mmol/L (137-145); Total Bilirubin 0.6 mg/dL (0.2-1.3); Total Protein 7.9 g/dL (6.3-8.2)
[2020-04-18 18:22] VITALS: BP 124/83; PULSE 82
== END 2020-04-18 18:23 | disposition home or self-care (01) ==
LOC: EC 15:56
DX: J36 Peritonsillar abscess (principal); E11.9 Type 2 diabetes mellitus without complications; E78.5 Hyperlipidemia, unspecified; F17.200 Nicotine dependence, unspecified, uncomplicated; Z79.899 Other long term (current) drug therapy; Z79.84 Long term (current) use of oral hypoglycemic drugs
CPT/HCPCS: 36415; 80053; 83605; 85025; 87040; 99284; 42700; J2001

== ENCOUNTER 2020-10-17 17:18 | Emergency (ER) | payer OTHER ==
[2020-10-17 17:47] VITALS: BP 134/82; PULSE 96; RESP 18; TEMP 98.8
[2020-10-17] MEDS ORDERED: ONDANSETRON 4 MG/2 ML VIAL IVP STA (18:08)
[2020-10-17] MEDS ORDERED: KETOROLAC 15 MG/ML 1 ML VIAL IVP STA (18:08)
[2020-10-17] MEDS ORDERED: SODIUM CHLORIDE 0.9% 1,000 ML IV STA (18:08)
--- NOTE | 2020-10-17 18:11 | ED ---
General Adult HPI - General Chief complaint: Abdominal Pain Stated complaint: Rt Side/Back Pain Time Seen by Provider: 10/17/20 17:51 Source: patient Mode of arrival: ambulatory Limitations: no limitations - History of Present Illness Initial comments: Patient is a 30-year-old female with history of diabetes, hypertension, presenting to the emergency Department with complaints of right flank pain and urgency that just started suddenly today about 3 hours prior to arrival. 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 She describes it as a the right flank with some radiation around towards her right lower quadrant. She denies any dysuria but does mention urgency. She states she felt fine all day today prior to this episode starting. He stones, no abdominal surgeries in the past. She's been having regular bowel movements. No chest pain or shortness of breath, some mild nausea but no vomiting or diarrhea. She states currently her pain has decreased over the past hour is currently a 6/10. About an hour ago it was over a 10 out of 10. She denies pian as she just had a normal cycle 2 weeks ago. She has no further complaints. Her vitals are stable upon arrival. - Related Data Home Medications Medication Instructions Recorded Confirmed metFORMIN HCL [Glucophage] 1,000 mg PO BID 05/16/16 04/16/20 Loratadine [Claritin] 10 mg PO DAILY 12/03/17 04/16/20 Amoxicillin/Potassium Clav 1 tab PO BID 04/16/20 04/16/20 [Augmentin 875-125 Tablet] Atorvastatin [Lipitor] 10 mg PO DAILY 04/16/20 04/16/20 Pioglitazone [Actos] 15 mg PO DAILY 04/16/20 04/16/20 Previous Rx's Medication Instructions Recorded Clindamycin [Cleocin] 300 mg PO Q6H 10 Days #40 cap 04/18/20 Ketorolac [Toradol] 10 mg PO Q8HR #8 tab 10/17/20 Allergies Allergy/AdvReac Type Severity Reaction Status Date / Time No Known Allergies Allergy Verified 10/17/20 17:47 Review of Systems ROS Statement: Those systems with pertinent positive or pertinent negative responses have been documented in the HPI. ROS Other: All systems not noted in ROS Statement are negative. Past Medical History Past Medical History: Diabetes Mellitus, Hyperlipidemia, Hypertension Additional Past Medical History / Comment(s): recovering addict and alcoholic, polycystic ovarian syndrome History of Any Multi-Drug Resistant Organisms: C-DIFF Date of last positivie culture/infection: 2018 Past Surgical History: No Surgical Hx Reported Additional Past Surgical History / Comment(s): barthonian cycst Past Psychological History: Bipolar Smoking Status: Current every day smoker Past Alcohol Use History: Occasional Past Drug Use History: Marijuana General Exam - General Exam Comments Initial Comments: GENERAL: Patient is well-developed and well-nourished. Patient is nontoxic and in mild distress. HEAD: Atraumatic, normocephalic. EYES: Pupils equal round and reactive to light, extraocular movements intact, sclera anicteric, conjunctiva are normal. Eyelids were unremarkable. ENT: Moist mucous membranes. NECK: Normal range of motion, supple without lymphadenopathy or JVD. LUNGS: Unlabored respirations. Breath sounds clear to auscultation bilaterally and equal. No wheezes rales or rhonchi. HEART: Regular rate and rhythm without murmurs, rubs or gallops. ABDOMEN: Soft, nontender, normoactive bowel sounds. No guarding, no rebound. No masses appreciated. Positive right flank pain on percussion. : Deferred MUSCULOSKELETAL: Normal extremities with adequate strength and normal range of motion, no pitting or edema. No clubbing or cyanosis. NEUROLOGICAL: Patient is alert and oriented x 3. SKIN: Warm, Dry, normal turgor, no rashes or lesions noted. Limitations: no limitations Course Vital Signs 10/17/20 17:44 Temperature 98.8 F Pulse Rate 96 Respiratory 18 Rate Blood Pressure 134/82 O2 Sat by Pulse 100 Oximetry Medical Decision Making - Medical Decision Making She is a 30-year-old female here with right flank pain started about 3 hours prior to arrival. She does have some urinary urgency as well. Her vitals are stable. Patient's labs show a white count of 13.1, feeling this is most likely reactive from her pain, rest of labs are within normal limits, urine does show evidence for large amount of blood, rare bacteria, hCG is not detected. CT of the abdomen did not show any acute abnormality. I do feel he given patient's complaint and large amount of blood in her urine this is most likely a kidney stone that has already passed. Patient has been relatively pain free here in the ER with only just some fluids and Toradol. Her to continue to increase her fluids over the next few days, I will send her with a few tablets of Toradol in case her pain does return. She can follow up with her primary care. Return parameters were discussed with her and she verbalized understanding. Case discussed with Dr. Epps. - Lab Data Result diagrams: 10/17/20 18:21 10/17/20 18:21 Lab Results 10/17/20 10/17/20 10/17/20 Range/Units 18:21 18:21 18:21 WBC 13.1 H (3.8-10.6) k/uL RBC 4.48 (3.80-5.40) m/uL Hgb 15.0 (11.4-16.0) gm/dL Hct 42.7 (34.0-46.0) % MCV 95.3 (80.0-100.0) fL MCH 33.5 (25.0-35.0) pg MCHC 35.1 (31.0-37.0) g/dL RDW 12.0 (11.5-15.5) % Plt Count 272 (150-450) k/uL MPV 7.0 Neutrophils % 83 % Lymphocytes % 10 % Monocytes % 4 % Eosinophils % 2 % Basophils % 0 % Neutrophils # 10.8 H (1.3-7.7) k/uL Lymphocytes # 1.3 (1.0-4.8) k/uL Monocytes # 0.5 (0-1.0) k/uL Eosinophils # 0.3 (0-0.7) k/uL Basophils # 0.1 (0-0.2) k/uL Sodium (137-145) mmol/L Potassium (3.5-5.1) mmol/L Chloride (98-107) mmol/L Carbon Dioxide (22-30) mmol/L Anion Gap mmol/L BUN (7-17) mg/dL Creatinine (0.52-1.04) mg/dL Est GFR (CKD-EPI)AfAm (>60 ml/min/1.73 sqM) Est GFR (CKD-EPI)NonAf (>60 ml/min/1.73 sqM) Glucose (74-99) mg/dL Calcium (8.4-10.2) mg/dL Total Bilirubin (0.2-1.3) mg/dL AST (14-36) U/L ALT (4-34) U/L Alkaline Phosphatase (38-126) U/L Total Protein (6.3-8.2) g/dL Albumin (3.5-5.0) g/dL Lipase (23-300) U/L Urine Color Yellow Urine Appearance Cloudy H (Clear) Urine pH 5.5 (5.0-8.0) Ur Specific [place] 1.014 (1.001-1.035) Urine Protein Negative (Negative) Urine Glucose (UA) Negative (Negative) Urine Ketones Negative (Negative) Urine Blood Large H (Negative) Urine Nitrite Negative (Negative) Urine Bilirubin Negative (Negative) Urine Urobilinogen <2.0 (<2.0) mg/dL Ur Leukocyte Esterase Large H (Negative) Urine RBC >182 H (0-5) /hpf Urine WBC 18 H (0-5) /hpf Ur Squamous Epith Cells 10 H (0-4) /hpf Urine Bacteria Rare H (None) /hpf Urine Mucus Rare H (None) /hpf Urine HCG, Qual Not Detected (Not Detectd) 10/17/20 Range/Units 18:21 WBC (3.8-10.6) k/uL RBC (3.80-5.40) m/uL Hgb (11.4-16.0) gm/dL Hct (34.0-46.0) % MCV (80.0-100.0) fL MCH (25.0-35.0) pg MCHC (31.0-37.0) g/dL RDW (11.5-15.5) % Plt Count (150-450) k/uL MPV Neutrophils % % Lymphocytes % % Monocytes % % Eosinophils % % Basophils % % Neutrophils # (1.3-7.7) k/uL Lymphocytes # (1.0-4.8) k/uL Monocytes # (0-1.0) k/uL Eosinophils # (0-0.7) k/uL Basophils # (0-0.2) k/uL Sodium 139 (137-145) mmol/L Potassium 4.1 (3.5-5.1) mmol/L Chloride 109 H (98-107) mmol/L Carbon Dioxide 20 L (22-30) mmol/L Anion Gap 10 mmol/L BUN 18 H (7-17) mg/dL Creatinine 0.88 (0.52-1.04) mg/dL Est GFR (CKD-EPI)AfAm >90 (>60 ml/min/1.73 sqM) Est GFR (CKD-EPI)NonAf 88 (>60 ml/min/1.73 sqM) Glucose 135 H (74-99) mg/dL Calcium 10.0 (8.4-10.2) mg/dL Total Bilirubin 0.4 (0.2-1.3) mg/dL AST 30 (14-36) U/L ALT 27 (4-34) U/L Alkaline Phosphatase 49 (38-126) U/L Total Protein 7.4 (6.3-8.2) g/dL Albumin 4.7 (3.5-5.0) g/dL Lipase 164 (23-300) U/L Urine Color Urine Appearance (Clear) Urine pH (5.0-8.0) Ur Specific [place] (1.001-1.035) Urine Protein (Negative) Urine Glucose (UA) (Negative) Urine Ketones (Negative) Urine Blood (Negative) Urine Nitrite (Negative) Urine Bilirubin (Negative) Urine Urobilinogen (<2.0) mg/dL Ur Leukocyte Esterase (Negative) Urine RBC (0-5) /hpf Urine WBC (0-5) /hpf Ur Squamous Epith Cells (0-4) /hpf Urine Bacteria (None) /hpf Urine Mucus (None) /hpf Urine HCG, Qual (Not Detectd) Disposition Clinical Impression: Right flank pain, Kidney stone, Hematuria Disposition: HOME SELF-CARE Condition: Stable Instructions (If sedation given, give patient instructions): Kidney Stones (ED) Additional Instructions: Please return to the Emergency Department if symptoms worsen or any other concerns. Increase your fluid intake over the next 1-2 days. May take Tylenol or Motrin for any discomfort, Toradol for more severe pain. Follow up with your primary care. Prescriptions: Ketorolac [Toradol] 10 mg PO Q8HR #8 tab Is patient prescribed a controlled substance at d/c from ED?: No Referrals: Harriet Lemus MD [Primary Care Provider] - 1-2 days Time of Disposition: 19:25
[2020-10-17 18:36] LABS: Appearance,Urine Cloudy (Clear); Bacteria,Urine Rare /hpf; Bilirubin,Urine Negative (Negative); Blood,Urine Large (Negative); Color,Urine Yellow; Glucose,Urine (UA) Negative (Negative); Ketones,Urine Negative (Negative); Leukocyte Esterase,Urine Large (Negative); Mucus,Urine Rare /hpf; Nitrite,Urine Negative (Negative); PH, Urine 5.5 (5.0-8.0); Protein,Urine Negative (Negative); RBC,Urine >182 /hpf (0-5); Specific Gravity,Urine 1.014 (1.001-1.035); Squamous Epithelial Cell,Urine 10 /hpf (0-4); Urobilinogen,Urine <2.0 mg/dL (<2.0); WBC,Urine 18 /hpf (0-5)
[2020-10-17 18:39] LABS: ALT 27 U/L (4-34); AST 30 U/L (14-36); African American GFR (CKD) >90 (>60 ml/min/1.73 sqM); Albumin 4.7 g/dL (3.5-5.0); Alkaline Phosphatase 49 U/L (38-126); Anion Gap 10 mmol/L; Blood Urea Nitrogen 18 mg/dL (7-17); Carbon Dioxide 20 mmol/L (22-30); Chloride 109 mmol/L (98-107); Glucose 135 mg/dL (74-99); Lipase 164 U/L (23-300); Non-African American GFR(CKD) 88 (>60 ml/min/1.73 sqM); Potassium 4.1 mmol/L (3.5-5.1); Sodium 139 mmol/L (137-145); Total Bilirubin 0.4 mg/dL (0.2-1.3); Total Protein 7.4 g/dL (6.3-8.2)
[2020-10-17 19:01] LABS: Basophils # (A) 0.1 k/uL (0-0.2); Basophils % (A) 0 %; Eosinophils # (A) 0.3 k/uL (0-0.7); Eosinophils % (A) 2 %; HCT 42.7 % (34.0-46.0); Lymphocytes # (A) 1.3 k/uL (1.0-4.8); Lymphocytes % (A) 10 %; MCH 33.5 pg (25.0-35.0); MCHC 35.1 g/dL (31.0-37.0); MCV 95.3 fL (80.0-100.0); Monocytes # (A) 0.5 k/uL (0-1.0); Monocytes % (A) 4 %; Neutrophils # (A) 10.8 k/uL (1.3-7.7); Neutrophils % (A) 83 %; Platelet Count 272 k/uL (150-450); RBC 4.48 m/uL (3.80-5.40); WBC 13.1 k/uL (3.8-10.6)
--- NOTE | 2020-10-17 19:04 | CT ---
EXAMINATION TYPE: CT abdomen pelvis wo con DATE OF EXAM: 10/17/2020 COMPARISON: 12/06/2017. HISTORY: Right sided flank pain with urination changes. CT DLP: 577.8 mGycm Automated exposure control for dose reduction was used. TECHNIQUE: Helical acquisition of images was performed from the lung bases through the pelvis. FINDINGS: LUNG BASES: No significant abnormality is appreciated. LIVER/GB: No significant abnormality is appreciated. PANCREAS: No significant abnormality is seen. SPLEEN: No significant abnormality is seen. ADRENALS: No significant abnormality is seen. KIDNEYS: No significant abnormality is seen. FREE AIR: No free air is visualized RETROPERITONEAL ADENOPATHY: None visualized REPRODUCTIVE ORGANS: No significant abnormality is seen URINARY BLADDER: No significant abnormality is seen. PELVIC ADENOPATHY: None visualized. OSSEOUS STRUCTURES: No significant abnormality is seen. BOWEL: No significant abnormality is seen. OTHER: None IMPRESSION: NO ACUTE ABNORMALITY.
== END 2020-10-17 19:51 | disposition home or self-care (01) ==
LOC: EC 17:18
DX: N20.0 Calculus of kidney (principal); E11.9 Type 2 diabetes mellitus without complications; E78.5 Hyperlipidemia, unspecified; I10 Essential (primary) hypertension; E28.2 Polycystic ovarian syndrome; F31.9 Bipolar disorder, unspecified; F12.90 Cannabis use, unspecified, uncomplicated; F17.200 Nicotine dependence, unspecified, uncomplicated; Z79.1 Long term (current) use of non-steroidal anti-inflammatories (NSAID); Z79.84 Long term (current) use of oral hypoglycemic drugs
CPT/HCPCS: 36415; 80053; 83690; 85025; 81001; 81025; 87086; 87077; 87186; 74176; 99284; 96374; 96375; 96361; J2405; J1885